=== PATIENT | female | born 1930 | race Hispanic/Latino ===

== ENCOUNTER 2017-08-24 17:05 | Inpatient (IN) | payer MEDICARE, OTHER ==
--- NOTE | 2017-08-24 18:09 | C.PDOC ---
History Of Present Illness Patient ELLEN after a trip and fall for evaluation of right hip pain. Patient was feeding dog when she slipped, fell onto her right side, hitting her hip on the stove. She is currently unable to bear weight on the affected hip. Patient denies head injury, LOC, chest pain, palpitations, SOB, abdominal pain. 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) Current Symptoms Are (Timing): Still Present Severity: Moderate Past Medical History Reviewed: Historical Data, Nursing Documentation, Vital Signs Vital Signs: Last Vital Signs Temp 98.8 F 08/30/17 18:25 Pulse 82 08/30/17 18:25 Resp 18 08/30/17 18:25 BP 102/57 L 08/30/17 18:25 Pulse Ox 100 08/30/17 09:00 - Medical History PMH: Depression, Diabetes, HTN, Hypercholesterolemia, Hypothyroidism Family History: States: No Known Family Hx - Social History Hx Tobacco Use: No Hx Alcohol Use: No Hx Substance Use: No - Immunization History Hx Tetanus Toxoid Vaccination: No Hx Influenza Vaccination: Yes Hx Pneumococcal Vaccination: Yes Review Of Systems Except As Marked, All Systems Reviewed And Found Negative. Constitutional: Negative for: Fever, Chills Cardiovascular: Negative for: Chest Pain, Palpitations Respiratory: Negative for: Shortness of Breath Gastrointestinal: Negative for: Nausea, Vomiting, Abdominal Pain, Diarrhea Musculoskeletal: Positive for: Other (right hip pain) Neurological: Negative for: Weakness, Numbness Physical Exam - Physical Exam Appears: Well, Non-toxic, In Acute Distress (in moderate pain) Head: Atraumatic, Normacephalic Eye(s): bilateral: Normal Inspection Oral Mucosa: Moist Cardiovascular: Rhythm Regular Respiratory: Normal Breath Sounds, No Rales, No Rhonchi, No Wheezing Gastrointestinal/Abdominal: Normal Exam, Bowel Sounds, Soft, No Tenderness Back: Other (right hip (+) severe TTP, inability to raise right leg (decreased ROM)) Extremity: No Pedal Edema, No Calf Tenderness, Capillary Refill (< 2 sec all digits ), No Deformity Pulses: Left Dorsalis Pedis: Normal, Right Dorsalis Pedis: Normal Neurological/Psych: Oriented x3 ED Course And Treatment - Laboratory Results Result Diagrams: 08/30/17 11:02 08/30/17 06:52 O2 Sat by Pulse Oximetry: 98 (RA) Pulse Ox Interpretation: Normal - Other Rad right hip/pelvis Xrays X-Ray: Interpreted by Me, Viewed By Me (subtrochanteric hip fx, displaced and comminuted ) Progress Note: Xray of hips/pelvis ordered and reviewed, and patient given PO tylenol on ED arrival. Xray shows right sided hip subtrochanteric fx, communited and displaced. Blood work ordered and patient given IV morphine. 7: 20pm- Multiple calls placed to Dr. Newsome's service, no call back. Discussed patient with hospitalist who requests admission under medicine director of quality control since patient is insured. 7:28am- Discussed patient with Dr. Flaherty ( medicine director of quality control), he agrees with admisison to his service for right hip fracture. Dr. Manning spoken with and aware of patient with hip fx. - Physician Consult Information Physician Contacted: Cheo Flaherty Disposition - Disposition Disposition: HOSPITALIZED Disposition Time: 19:30 Condition: STABLE - Clinical Impression Clinical Impression: Closed right hip fracture Decision To Admit - Pt Status Changed To: Hospital Disposition Of: Inpatient - Admit Certification Admit to Inpatient:: After my assessment, the patient will require hospitalization for at least two midnights. This is because of the severity of symptoms shown, intensity of services needed, and/or the medical risk in this patient being treated as an outpatient. - InPatient: Physician Admission Certification: I certify that this patient requires 2 or more midnights of care for the following reason:: see notes - . Bed Request Type: Regular Admitting Physician: Cheo Flaherty Patient Diagnosis: Closed right hip fracture
[2017-08-24] MEDS ORDERED: Sodium Chloride 0.9% 500 ML IV ONE (18:11)
[2017-08-24 18:24] LABS: BASO # 0.1 K/uL (0.0-0.2); BASO % 0.5 % (0.0-2.0); EOS # 0.2 K/uL (0.0-0.7); EOS % 1.6 % (0.0-4.0); LYMPH # 4.1 K/uL (1.0-4.3); LYMPH % 27.8 % (20.0-40.0); MEAN CELL VOLUME 95.2 fL (81.0-99.0); MEAN CORPUSCULAR HEMOGLOBIN 32.2 pg (27.0-31.0); MEAN CORPUSCULAR HGB CONC 33.8 g/dL (33.0-37.0); MEAN PLATELET VOLUME 9.9 fL (7.2-11.7); MONO # 0.4 K/uL (0.0-0.8); MONO % 2.7 % (0.0-10.0); NEUT # 9.9 K/uL (1.8-7.0); NEUT % 67.4 % (50.0-75.0); NRBC % 0.1 % (0.0-2.0); RBC 4.67 Mil/uL (3.80-5.20); RED CELL DISTRIBUTION WIDTH 12.9 % (11.5-14.5); WHITE BLOOD COUNT 14.7 K/uL (4.8-10.8)
[2017-08-24 18:42] LABS: PROTHROMBIN TIME 10.9 SECONDS (9.7-12.2)
[2017-08-24 18:54] LABS: ALB/GLOB RATIO 1.3 (1.0-2.1); ALBUMIN 3.7 g/dL (3.5-5.0); ALT/SGPT 23 U/L (9-52); AST/SGOT 29 U/L (14-36); BLOOD UREA NITROGEN 21 mg/dL (7-17); CALCIUM 8.9 mg/dl (8.6-10.4); GFR AFRICAN-AMERICAN > 60; GFR NON-AFRICAN AMERICAN 59
--- NOTE | 2017-08-24 20:24 | CT ---
EXAM: CT Right Lower Extremity Without Intravenous Contrast, Hip EXAM DATE/TIME: 08/24/2017 6:59 PM CLINICAL HISTORY: 87 years old, female; Pain; Hip; Right; Additional info: Right hip FX TECHNIQUE: Axial computed tomography images of the right hip without intravenous contrast. All CT scans at this facility use one or more dose reduction techniques, viz.: automated exposure control; ma/kV adjustment per patient size (including targeted exams where dose is matched to indication; i.e. head); or iterative reconstruction technique. Coronal and sagittal reformatted images were created and reviewed. COMPARISON: There are no prior studies for comparison. FINDINGS: Bones/joints: There is a comminuted intertrochanteric fracture of the right hip. There is varus deformity and impaction at the fracture site. There is distraction of smaller fragments. There is no dislocation. No pelvic or sacral fractures are identified. Bony structures are osteopenic. There are degenerative changes. Soft tissues: There is soft tissue swelling and edema at the right hip. Vasculature: There are vascular calcifications. Intraperitoneal space: There is a nonspecific gas pattern in the visualized pelvis. IMPRESSION: Comminuted intertrochanteric fracture of the right hip with varus deformity and impaction Additional nonemergent findings as described above.
--- NOTE | 2017-08-24 23:44 | CP.PCM.HP ---
History of Present Illness - History of Present Illness History of Present Illness: CC: Right hi ppain HPI: 87 year old female with no significant PMH Patient BIBA after trip and fall for evaluation of right hip hip. Patient was feeding dog when she slipped , fell onto the right side hitting her hip on the stove. She is currently unable to weight bear. Patient denies head injury, LOC, chest pain, palpitations, SOB, abdominal pain. Present on Admission - Present on Admission Any Indicators Present on Admission: Yes Review of Systems - Review of Systems Systems not reviewed;Unavailable: Acuity of Condition - Constitutional Constitutional: absent: As Per HPI, Anorexia, Chills, Daytime Sleepiness, Excessive Sweating, Fatigue, Fever, Frequent Falls, Headache, Increased Appetite , Lethargy, Malaise, Night Sweats, Snoring, Sleep Apnea, Weight Gain, Weight Loss, Weakness, Other - EENT Eyes: absent: As Per HPI, Blind Spots, Blurred Vision, Change in Vision, Decreased Night Vision, Diplopia, Discharge, Dry Eye, Exophthalmos, Floaters, Irritation, Itchy Eyes, Loss of Peripheral Vision, Pain, Photophobia, Requires Corrective Lenses, Sees Flashes, Spots in Vision, Tunnel Vision, Other Visual Disturbances, Loss of Vision, Other Nose/Mouth/Throat: absent: As Per HPI, Epistaxis, Nasal Congestion, Nasal Discharge, Nasal Obstruction, Nasal Trauma, Nose Pain, Post Nasal Drip, Sinus Pain, Sinus Pressure, Bleeding Gums, Change in Voice, Dental Pain, Dry Mouth, Dysphagia, Halitosis, Hoarsness, Lip Swelling, Mouth Lesions, Mouth Pain, Odynophagia, Sore Throat, Throat Swelling, Tongue Swelling, Facial Pain, Neck Pain, Neck Mass, Other - Breasts Breasts: absent: As Per HPI, Change in Shape, Mass, Pain, Nipple Discharge, Nipple Inversion, Skin Changes, Swelling, Other - Cardiovascular Cardiovascular: absent: As Per HPI, Acrocyanosis, Chest Pain, Chest Pain at Rest , Chest Pain with Activity, Claudication, Diaphoresis, Dyspnea, Dyspnea on Exertion, Edema, Irregular Heart Rhythm, Pain Radiating to Arm/Neck/Jaw, Leg Edema, Leg Ulcers, Lightheadedness, Orthopnea, Palpitations, Paroxysmal Nocturnal Dyspnea, Pedal Edema, Radiating Pain, Rapid Heart Rate, Slow Heart Rate, Syncope, Other - Respiratory Respiratory: absent: As Per HPI, Cough, Dyspnea, Hemoptysis, Dyspnea on Exertion , Wheezing, Snoring, Stridor, Pain on Inspiration, Chest Congestion, Excessive Mucous Production, Change in Mucous Color, Pain with Coughing, Other - Musculoskeletal Musculoskeletal: Joint Swelling, Limited Range of Motion, Loss of Height Past Patient History - Past Social History Smoking Status: Never Smoked - CARDIAC Hx Hypercholesterolemia: Yes Hx Hypertension: Yes - PULMONARY Hx Tuberculosis: No - NEUROLOGICAL HX Cerebrovascular Accident: No Hx Seizures: No - ENDOCRINE/METABOLIC Hx Hypothyroidism: Yes - HEMATOLOGICAL/ONCOLOGICAL Hx Cancer: No Hx Human Immunodeficiency Virus (HIV): No - GENITOURINARY/GYNECOLOGICAL Hx Sexually Transmitted Disorders: No - PSYCHIATRIC Hx Depression: Yes Hx Substance Use: No - ANESTHESIA Hx Anesthesia: No Hx Anesthesia Reactions: No Meds Allergies/Adverse Reactions: Allergies Allergy/AdvReac Type Severity Reaction Status Date / Time erythromycin base Allergy RASH Verified 08/24/17 17:16 Penicillins Allergy RASH Verified 08/25/17 04:25 Results - Vital Signs Recent Vital Signs: Last Vital Signs Temp 98.6 F 08/24/17 17:21 Pulse 90 08/24/17 22:15 Resp 14 08/24/17 22:15 BP 96/60 L 08/24/17 22:15 Pulse Ox 96 08/24/17 22:15 - Labs Result Diagrams: 08/24/17 18:15 08/24/17 18:15 Labs: Laboratory Results - last 24 hr 08/24/17 08/24/17 08/24/17 18:15 18:15 18:15 WBC 14.7 H RBC 4.67 Hgb 15.0 Hct 44.5 MCV 95.2 MCH 32.2 H MCHC 33.8 RDW 12.9 Plt Count 258 MPV 9.9 Neut % (Auto) 67.4 Lymph % (Auto) 27.8 [place] % (Auto) 2.7 Eos % (Auto) 1.6 Baso % (Auto) 0.5 Neut # 9.9 H Lymph # 4.1 [place] # 0.4 Eos # 0.2 Baso # 0.1 PT 10.9 INR 1.0 APTT 25 Sodium 135 Potassium 4.2 Chloride 98 Carbon Dioxide 27 Anion Gap 14 BUN 21 H Creatinine 0.9 Est GFR ( Amer) > 60 Est GFR (Non-Af Amer) 59 Random Glucose 212 H Calcium 8.9 Total Bilirubin 0.5 AST 29 ALT 23 Alkaline Phosphatase 76 Total Protein 6.7 Albumin 3.7 Globulin 3.0 Albumin/Globulin Ratio 1.3 Blood Type BRANDIN, Poly Interpret 08/24/17 18:15 WBC RBC Hgb Hct MCV MCH MCHC RDW Plt Count MPV Neut % (Auto) Lymph % (Auto) [place] % (Auto) Eos % (Auto) Baso % (Auto) Neut # Lymph # [place] # Eos # Baso # PT INR APTT Sodium Potassium Chloride Carbon Dioxide Anion Gap BUN Creatinine Est GFR ( Amer) Est GFR (Non-Af Amer) Random Glucose Calcium Total Bilirubin AST ALT Alkaline Phosphatase Total Protein Albumin Globulin Albumin/Globulin Ratio Blood Type O POSITIVE BRANDIN, Poly Interpret Positive H Assessment & Plan (1) Hip fracture, right Assessment and Plan: pt is for OR Status: Acute (2) HTN (hypertension) Status: Acute
[2017-08-25] MEDS: Levothyroxine 100 MCG TAB PO SCH (06:26)
--- NOTE | 2017-08-25 08:19 | RAD ---
PROCEDURE: Pelvis right hip HISTORY: RIGHT HIP PAIN POSSIBLE FX COMPARISON: None TECHNIQUE: Standard protocol for this study/examination. FINDINGS: Comminuted intertrochanteric fracture proximal right femur with avulsion of both greater and lesser trochanters. Incidental finding(s): Calculus probably originating from the right kidney or collecting system 13 mm. IMPRESSION: Acute and comminuted intertrochanteric right femoral fracture.
--- NOTE | 2017-08-25 08:19 | RAD ---
PROCEDURE: CHEST RADIOGRAPH, 1 VIEW HISTORY: PREOP COMPARISON: None available. FINDINGS: LUNGS: Clear. PLEURA: No pneumothorax or pleural fluid seen. CARDIOVASCULAR: Cardiomegaly. No evidence of acute, significant cardiovascular disease. OSSEOUS STRUCTURES: Severe degenerative changes right shoulder and to lesser extent left shoulder. VISUALIZED UPPER ABDOMEN: Normal. OTHER FINDINGS: None. IMPRESSION: No active pulmonary disease. Additional benign and/or incidental findings described above.
--- NOTE | 2017-08-25 08:25 | RAD ---
PROCEDURE: Right femur HISTORY: right hip fx, ortho request COMPARISON: August 24, 2017. TECHNIQUE: Standard protocol for this study/examination. FINDINGS: Acute and comminuted inter trochanteric fracture with a component of impaction and varus deformity. No distal abnormalities of an acute nature identified. Incompletely visualized degenerative changes. IMPRESSION: Acute comminuted intertrochanteric fracture.
[2017-08-25] MEDS: Enoxaparin 40 mg Syringe SC SCH (09:46)
[2017-08-25] MEDS ORDERED: ZOLPIDEM TARTRATE 5 MG PO SCH (10:00)
[2017-08-25] MEDS ORDERED: ATENOLOL 25 MG PO SCH (10:00)
--- NOTE | 2017-08-26 02:38 | CP.PCM.PN ---
Subjective - Date & Time of Evaluation Date of Evaluation: 08/25/17 Time of Evaluation: 18:00 - Subjective Subjective: Pt still c/o right hip pain, is medically stable for OR Objective - Vital Signs/Intake and Output Vital Signs (last 24 hours): Temp Pulse Resp BP Pulse Ox 97.5 F L 86 20 111/71 95 08/25/17 23:10 08/25/17 23:10 08/25/17 23:10 08/25/17 23:10 08/25/17 23:10 Intake and Output: 08/25/17 08/26/17 18:59 06:59 Intake Total 350 Balance 350 - Medications Medications: Current Medications Atenolol (Tenormin) 25 mg PO DAILY [facility] Enoxaparin Sodium (Lovenox) 40 mg SC DAILY [facility] Last Admin: 08/25/17 09:46 Dose: 40 mg Levothyroxine Sodium (Synthroid) 100 mcg PO DAILY@0630 [facility] Last Admin: 08/25/17 06:26 Dose: 100 mcg Morphine Sulfate (Morphine) 2 mg IVP Q4 PRN PRN Reason: pain Last Admin: 08/25/17 22:44 Dose: 2 mg Rosuvastatin Calcium (Crestor) 10 mg PO HS [facility] Last Admin: 08/25/17 22:39 Dose: 10 mg Zolpidem Tartrate (Ambien) 5 mg PO [facility] - Labs Labs: 08/24/17 18:15 08/24/17 18:15 PT 10.9 SECONDS (9.7-12.2) 08/24/17 18:15 INR 1.0 08/24/17 18:15 APTT 25 SECONDS (21-34) 08/24/17 18:15 - Constitutional Appears: No Acute Distress - Head Exam Head Exam: ATRAUMATIC, NORMAL INSPECTION, NORMOCEPHALIC - Eye Exam Eye Exam: EOMI, Normal appearance, PERRL Pupil Exam: NORMAL ACCOMODATION, PERRL - Respiratory Exam Respiratory Exam: Clear to Ausculation Bilateral, NORMAL BREATHING PATTERN - Cardiovascular Exam Cardiovascular Exam: REGULAR RHYTHM, +S1, +S2. absent: Murmur - GI/Abdominal Exam GI & Abdominal Exam: Soft, Normal Bowel Sounds. absent: Tenderness - Rectal Exam Rectal Exam: Deferred - Extremities Exam Extremities Exam: Joint Swelling - Back Exam Back Exam: NORMAL INSPECTION - Neurological Exam Neurological Exam: Alert, Awake, CN II-XII Intact, Normal Gait, Oriented x3 Assessment and Plan (1) HTN (hypertension) Status: Acute (2) Hip fracture, right Status: Acute
[2017-08-26] MEDS: Levothyroxine 100 MCG TAB PO SCH (05:36)
--- NOTE | 2017-08-26 12:04 | CP.PCM.CON ---
History of Present Illness - History of Present Illness History of Present Illness: Orthopedic consultation Dr. Cartwright 87F complains of right hip pain after fall, found to have hip fracture. Advised patient of risks/benefits/alt of surgery and patient agrees to IM nailing. Denies CP/SOB/dizziness/numbness/tingling/n/v. Denies pain in other extremities , denies LOC/headache. Review of Systems - Review of Systems All systems: reviewed and no additional remarkable complaints except - Constitutional Additional comments: denies recent illness - Cardiovascular Cardiovascular: As Per HPI - Respiratory Respiratory: As Per HPI - Gastrointestinal Gastrointestinal: As Per HPI - Genitourinary Additional comments: denies dysuria - Musculoskeletal Musculoskeletal: As Per HPI - Integumentary Integumentary: As Per HPI - Neurological Neurological: As Per HPI - Hematologic/Lymphatic Hematologic: absent: As Per HPI, Easy Bleeding, Easy Bruising, Lymphadenopathy, Other Past Patient History - Past Medical History & Family History Past Medical History?: Yes Past Family History: Reviewed and not pertinent - Past Social History Smoking Status: Never Smoked - CARDIAC Hx Hypercholesterolemia: Yes Hx Hypertension: Yes - PULMONARY Hx Tuberculosis: No - NEUROLOGICAL HX Cerebrovascular Accident: No Hx Seizures: No - HEENT Hx HEENT Problems: No - ENDOCRINE/METABOLIC Hx Hypothyroidism: Yes - HEMATOLOGICAL/ONCOLOGICAL Hx Cancer: No Hx Human Immunodeficiency Virus (HIV): No - INTEGUMENTARY Hx Dermatological Problems: No - MUSCULOSKELETAL/RHEUMATOLOGICAL Hx Falls: Yes - GASTROINTESTINAL Hx Gastrointestinal Disorders: No - GENITOURINARY/GYNECOLOGICAL Hx Sexually Transmitted Disorders: No - PSYCHIATRIC Hx Depression: Yes Hx Substance Use: No - SURGICAL HISTORY Hx Surgeries: Yes Other/Comment: 2x c section. right wrist fracture "long time ago" - ANESTHESIA Hx Anesthesia: No Hx Anesthesia Reactions: No Meds Allergies/Adverse Reactions: Allergies Allergy/AdvReac Type Severity Reaction Status Date / Time erythromycin base Allergy RASH Verified 08/24/17 17:16 Penicillins Allergy RASH Verified 08/25/17 04:25 - Medications Medications: Current Medications Atenolol (Tenormin) 25 mg PO DAILY [facility] Last Admin: 08/26/17 09:58 Dose: 25 mg Enoxaparin Sodium (Lovenox) 40 mg SC DAILY [facility] Last Admin: 08/25/17 09:46 Dose: 40 mg Levothyroxine Sodium (Synthroid) 100 mcg PO DAILY@0630 [facility] Last Admin: 08/26/17 05:36 Dose: 100 mcg Morphine Sulfate (Morphine) 2 mg IVP Q4 PRN PRN Reason: pain Last Admin: 08/26/17 09:58 Dose: 2 mg Rosuvastatin Calcium (Crestor) 10 mg PO [facility] Last Admin: 08/25/17 22:39 Dose: 10 mg Zolpidem Tartrate (Ambien) 5 mg PO [facility] Last Admin: 08/25/17 22:15 Dose: Not Given Physical Exam - Constitutional Appears: Well, No Acute Distress - Head Exam Head Exam: ATRAUMATIC - Respiratory Exam Respiratory Exam: NORMAL BREATHING PATTERN - Cardiovascular Exam Additional comments: +DP/PT pulses - Expanded Lower Extremities Exam Right Hip exam: external rotation, shortening (+DP/PTpulses, calves soft NT neg homans ) Knee exam: normal inspection Ankle exam: FULL ROM, NORMAL INSPECTION - Neurological Exam Neurological exam: Alert, Oriented x3 - Psychiatric Exam Psychiatric exam: Normal Affect, Normal Mood - Skin Skin Exam: Dry, Intact, Normal Color, Warm Results - Vital Signs Recent Vital Signs: Last Vital Signs Temp 99 F 08/26/17 09:51 Pulse 103 H 08/26/17 09:51 Resp 20 08/26/17 09:51 BP 105/67 08/26/17 09:51 Pulse Ox 96 08/26/17 09:51 - Labs Result Diagrams: 08/24/17 18:15 08/24/17 18:15 - EKG Data EKG comments: Patient Name / ID : DAYSI HODGSON / [id number] Exam Date : 08/24/2017 19:01:21 ( Approved ) Study Comment : Sex / Age : F / 87Y Creator : Luis A Ho MD Dictator : Luis A Ho MD Hot Stick Worker : Mannequin Wig Maker : Luis A Ho MD Approver2 : Report Date : 08/25/2017 08:23:31 My Comment : PROCEDURE: Right femur HISTORY: right hip fx, ortho request COMPARISON: August 24, 2017. TECHNIQUE: Standard protocol for this study/examination. FINDINGS: Acute and comminuted inter trochanteric fracture with a component of impaction and varus deformity. No distal abnormalities of an acute nature identified. Incompletely visualized degenerative changes. IMPRESSION: Acute comminuted intertrochanteric fracture. - Impressions Impression: Patient Name / ID : DAYSI HODGSON / [id number] Exam Date : 08/24/2017 19:41:46 ( Approved ) Study Comment : Sex / Age : F / 87Y Creator : ELOY RENEE Dictator : Hot Stick Worker : Mannequin Wig Maker : ELOY RENEE Approver2 : Report Date : 08/24/2017 20:24:00 My Comment : [facility] Division of Radiology [address] [place] [address] Tel. no. Patient Name: REMA TAVAREZ Pt. Address: [address] [place] [address] Rec #: [id number] [place] [address]: Nely Bryant DO Pt Order Location: 9 : 1930 Female Age: 87 Order #: [id number] Reason for exam: right hip fx CT Scan HIP WITHOUT CONTRAST RIGHT Exam Date: 08/24/17 This imaging exam was performed at [facility] EXAM: CT Right Lower Extremity Without Intravenous Contrast, Hip EXAM DATE/TIME: 08/24/2017 6:59 PM CLINICAL HISTORY: 87 years old, female; Pain; Hip; Right; Additional info: Right hip FX TECHNIQUE: Axial computed tomography images of the right hip without intravenous contrast. All CT scans at this facility use one or more dose reduction techniques, viz.: automated exposure control; ma/kV adjustment per patient size (including targeted exams where dose is matched to indication; i.e. head); or iterative reconstruction technique. Coronal and sagittal reformatted images were created and reviewed. COMPARISON: There are no prior studies for comparison. FINDINGS: Bones/joints: There is a comminuted intertrochanteric fracture of the right hip. There is varus deformity and impaction at the fracture site. There is distraction of smaller fragments. There is no dislocation. No pelvic or sacral fractures are identified. Bony structures are osteopenic. There are degenerative changes. Soft tissues: There is soft tissue swelling and edema at the right hip. Vasculature: There are vascular calcifications. Intraperitoneal space: There is a nonspecific gas pattern in the visualized pelvis. IMPRESSION: Comminuted intertrochanteric fracture of the right hip with varus deformity and impaction Additional nonemergent findings as described above. Dictated By: Eloy Renee MD, MD Dictated Date/Time: 08/24/172023 Signed By: Eloy Renee MD Date Signed: 2023 Transcribed By: [facility] Transcribe Date/Time : 08/24/172023 MAMTA/MT Assessment & Plan (1) Displaced intertrochanteric fracture of right femur Assessment and Plan: plan for IM nailing weds 9am per Dr. Gabbie card, u/a VTE proph, lovenox given SCD repeat labs ordered d/w Dr. Cartwright, agrees with above Status: Acute
[2017-08-26 12:24] LABS: BASO % 0.3 % (0.0-2.0); LYMPH # 2.4 K/uL (1.0-4.3); LYMPH % 16.4 % (20.0-40.0); MEAN CELL VOLUME 94.1 fL (81.0-99.0); MEAN CORPUSCULAR HEMOGLOBIN 32.1 pg (27.0-31.0); MEAN CORPUSCULAR HGB CONC 34.1 g/dL (33.0-37.0); MEAN PLATELET VOLUME 10.3 fL (7.2-11.7); MONO # 0.9 K/uL (0.0-0.8); MONO % 6.4 % (0.0-10.0); NEUT # 11.3 K/uL (1.8-7.0); NEUT % 76.9 % (50.0-75.0); RBC 3.58 Mil/uL (3.80-5.20); RED CELL DISTRIBUTION WIDTH 12.9 % (11.5-14.5); WHITE BLOOD COUNT 14.7 K/uL (4.8-10.8)
[2017-08-26 12:31] LABS: HEMOGLOBIN 11.5 g/dL (11.0-16.0)
[2017-08-26 12:49] LABS: BLOOD UREA NITROGEN 19 mg/dL (7-17); GFR AFRICAN-AMERICAN > 60; GFR NON-AFRICAN AMERICAN > 60
[2017-08-26 18:21] LABS: SQUAMOUS EPITHIAL 2 /hpf (0-5); URINE BACTERIA FEW (<OCC); URINE BILIRUBIN NEGATIVE (NEGATIVE); URINE BLOOD 3+ (NEGATIVE); URINE CALCIUM OXALATE CRYSTALS FEW /hpf (<OCC); URINE CLARITY Hazy (Clear); URINE COLOR Yellow (YELLOW); URINE GLUCOSE (UA) 2+ mg/dL (Normal); URINE NITRATE NEGATIVE (NEGATIVE); URINE PROTEIN 1+ mg/dL (NEGATIVE); URINE UROBILINOGEN NORMAL mg/dL (0.2-1.0)
[2017-08-26 18:22] LABS: URINE LEUKOCYTE ESTERASE 3+ Leu/uL (Negative)
--- NOTE | 2017-08-26 22:58 | CP.PCM.PN ---
Subjective - Date & Time of Evaluation Date of Evaluation: 08/26/17 Time of Evaluation: 16:50 - Subjective Subjective: Pt seen and examined, he is for OR on Saturday for Hip surgery, she is for cardiac clearance today Objective - Vital Signs/Intake and Output Vital Signs (last 24 hours): Temp Pulse Resp BP Pulse Ox 98.8 F 80 18 106/71 96 08/26/17 15:30 08/26/17 16:00 08/26/17 15:30 08/26/17 15:30 08/26/17 15:30 Intake and Output: 08/26/17 08/27/17 18:59 06:59 Intake Total 430 240 Output Total 100 175 Balance 330 65 - Medications Medications: Current Medications Atenolol (Tenormin) 25 mg PO DAILY [facility] Last Admin: 08/26/17 09:58 Dose: 25 mg Ciprofloxacin (Cipro) 500 mg PO BID [facility] Stop: 08/31/17 11:00 Last Admin: 08/26/17 21:39 Dose: 500 mg Enoxaparin Sodium (Lovenox) 40 mg SC DAILY [facility] Last Admin: 08/25/17 09:46 Dose: 40 mg Levothyroxine Sodium (Synthroid) 100 mcg PO DAILY@0630 [facility] Last Admin: 08/26/17 05:36 Dose: 100 mcg Morphine Sulfate (Morphine) 2 mg IVP Q4 PRN PRN Reason: pain Last Admin: 08/26/17 21:41 Dose: 2 mg Rosuvastatin Calcium (Crestor) 10 mg PO [facility] Last Admin: 08/25/17 22:39 Dose: 10 mg Zolpidem Tartrate (Ambien) 5 mg PO [facility] Last Admin: 08/26/17 21:39 Dose: 5 mg - Labs Labs: 08/26/17 12:14 08/26/17 12:14 PT 10.9 SECONDS (9.7-12.2) 08/24/17 18:15 INR 1.0 08/24/17 18:15 APTT 25 SECONDS (21-34) 08/24/17 18:15 - Constitutional Appears: No Acute Distress - Head Exam Head Exam: ATRAUMATIC, NORMAL INSPECTION, NORMOCEPHALIC - Eye Exam Eye Exam: EOMI, Normal appearance, PERRL Pupil Exam: NORMAL ACCOMODATION, PERRL - Respiratory Exam Respiratory Exam: Clear to Ausculation Bilateral, NORMAL BREATHING PATTERN - Cardiovascular Exam Cardiovascular Exam: REGULAR RHYTHM, +S1, +S2. absent: Murmur - GI/Abdominal Exam GI & Abdominal Exam: Soft, Normal Bowel Sounds. absent: Tenderness - Rectal Exam Rectal Exam: Deferred Assessment and Plan (1) HTN (hypertension) Status: Acute (2) Hip fracture, right Status: Acute
--- NOTE | 2017-08-27 00:41 | CON ---
DATE: REASON FOR CONSULTATION: Hypertension, repeat operative evaluation for a comminuted right intertrochanteric fracture. HISTORY OF PRESENT ILLNESS: The patient is an 87-year-old female who has a history of hypertension and no known other cardiac history according to her. Patient sustained a fall on her kitchen floor as was she tripped by her dog. Patient fell and sustained a right hip fracture. Patient denies any dizziness, loss of consciousness or palpitation and denies any head injury. The patient has a history of fall few years ago and sustained a fracture in the right forearm that required open reduction and internal fixation. The patient has right hip pain. She denies any chest pain or shortness of breath at this time. SOCIAL HITORY: Nonsmoker. She lives with her son. MEDICATIONS: Ambien 5 mg at bedtime, Crestor 10 mg once daily, Lovenox 40 mg subcutaneously once a day, morphine 2 mg subcutaneously q. 4 hours p.r.n., Synthroid 100 mcg once a day, atenolol 25 mg once a day. REVIEW OF SYSTEMS: No fever or chills. No chest pain. No palpitation. No dizziness or syncope. PHYSICAL EXAMINATION GENERAL: The patient is an elderly female, who does not appear to be in acute distress. VITAL SIGNS: Blood pressure 105/67, heart rate 103, temperature 99, respirations 20. HEENT: Normocephalic. CHEST: Clear. HEART: S1 and S2 regular. ABDOMEN: Soft. EXTREMITIES: No pedal edema. LABORATORY DATA: Today's SMA-7; sodium 130, potassium 4.4, chloride 100, CO2 of 26, glucose 184, BUN 19, creatinine 0.8. PT, INR, and PTT are within normal limits. CBC; WBC 14.7, hemoglobin 11.5, hematocrit 33.7, platelet count 172,000. X-ray of the hip revealed a comminuted fracture involving the right femur neck as well as the proximal right femoral shaft including both greater and lesser trochanters. The official report of the hip CT scan stated comminuted intertrochanteric fracture of the right hip with valgus deformity and impaction. EKG revealed sinus rhythm with atrial premature complexes. Heart rate is 74. Chest x-ray was significantly rotated; however, no infiltrate or effusion noted. ASSESSMENT: 1. Status post fall and a comminuted, angulated, and impacted right intertrochanteric fracture. 2. History of hypertension. 3. Hypothyroidism. 4. Abnormal EKG with evidence of atrial premature complexes. RECOMMENDATIONS: Continue Synthroid 100 mcg once a day, atenolol 25 mg once a day, Crestor 10 mg once a day. Obtain an echocardiographic study. Donal Mcintosh MD
[2017-08-27] MEDS: Levothyroxine 100 MCG TAB PO SCH (05:47)
[2017-08-27 07:37] LABS: HEMOGLOBIN 10.7 g/dL (11.0-16.0); MEAN CELL VOLUME 94.1 fL (81.0-99.0); MEAN CORPUSCULAR HEMOGLOBIN 32.1 pg (27.0-31.0); MEAN CORPUSCULAR HGB CONC 34.1 g/dL (33.0-37.0); MEAN PLATELET VOLUME 10.1 fL (7.2-11.7); RBC 3.35 Mil/uL (3.80-5.20); RED CELL DISTRIBUTION WIDTH 13.1 % (11.5-14.5); WHITE BLOOD COUNT 13.8 K/uL (4.8-10.8)
[2017-08-27 07:47] LABS: BLOOD UREA NITROGEN 21 mg/dL (7-17); CALCIUM 7.8 mg/dl (8.6-10.4); GFR AFRICAN-AMERICAN > 60; GFR NON-AFRICAN AMERICAN 52
--- NOTE | 2017-08-27 13:08 | CARD ---
APPROVED REPORT EXAM: Two-dimensional and M-mode echocardiogram with Doppler and color Doppler. Other Information Quality : GoodRhythm : INDICATION Pre-Op RISK FACTORS Hypertension Hyperlipidemia Diabetes 2D DIMENSIONS IVSd0.9 (0.7-1.1cm)LVDd3.7 (3.9-5.9cm) PWd0.9 (0.7-1.1cm)LVDs2.2 (2.5-4.0cm) FS (%) 40.9 %LVEF (%)72.6 (>50%) M-Mode DIMENSIONS Left Atrium (MM)4.82 (2.5-4.0cm)Aortic Root2.82 (2.2-3.7cm) Aortic Cusp Exc.2.18 (1.5-2.0cm) Aortic Valve AI P 1/2 [id number] Mitral Valve MV E Ragfqsak85.8cm/sMV A Wcgvimnw61.8cm/sE/A ratio1.1 TDI E/Lateral E'0.0E/Medial E'0.0 Tricuspid Valve TR Peak [id number]/sTR Peak Gr.[id number] LEFT VENTRICLE The left ventricle is normal size. There is normal left ventricular wall thickness. Left ventricle systolic function is normal. The Ejection Fraction is 65-70%. There is normal LV segmental wall motion. Transmitral Doppler flow pattern is Grade I-abnormal relaxation pattern. There is no ventricular septal defect visualized. RIGHT VENTRICLE The right ventricle is normal size. The right ventricular systolic function is normal. ATRIA The left atrium is mildly dilated. Large as defined mass in the left atrium, probably attached to the atrial aspect of the anterior leaflet of the mitral valve. Cannot rule out myxoma, DIPAK is recommended The right atrium size is normal. AORTIC VALVE The aortic valve is moderately sclerotic. The aortic valve is tri-cuspid. There is moderate aortic regurgitation. There is no aortic valvular stenosis. MITRAL VALVE The mitral valve is normal in structure. The mitral valve is not well visualized. There is no evidence of mitral valve prolapse. There is no mitral valve regurgitation noted. TRICUSPID VALVE The tricuspid valve is normal in structure. There is trace to mild tricuspid regurgitation. Right ventricular systolic pressure is estimated at 30-40 mmHg. There is mild pulmonary hypertension. PULMONIC VALVE The pulmonic valve is not well visualized. There is no pulmonic valvular regurgitation. GREAT VESSELS The aortic root is normal in size. The ascending aorta is normal in size. The IVC is normal in size and collapses >50% with inspiration. PERICARDIAL EFFUSION There is no pericardial effusion. <Conclusion> Left ventricle systolic function is normal. The Ejection Fraction is 65-70%. Transmitral Doppler flow pattern is Grade I-abnormal relaxation pattern. The left atrium is mildly dilated. Large as defined mass in the left atrium, probably attached to the atrial aspect of the anterior leaflet of the mitral valve. Cannot rule out myxoma, DIPAK is recommended There is moderate aortic regurgitation. There is mild pulmonary hypertension.
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
--- NOTE | 2017-08-27 23:58 | CP.PCM.PN ---
Subjective - Date & Time of Evaluation Date of Evaluation: 08/27/17 Time of Evaluation: 18:00 - Subjective Subjective: Pt is for OR, possibility of atrial myxoma she need DIPAK eventually,otherwise she is stable for OR for hip replacement Objective - Vital Signs/Intake and Output Vital Signs (last 24 hours): Temp Pulse Resp BP Pulse Ox 99.3 F 71 18 97/60 L 95 08/27/17 15:15 08/27/17 15:30 08/27/17 15:15 08/27/17 15:15 08/27/17 15:15 Intake and Output: 08/27/17 08/28/17 18:59 06:59 Intake Total 400 Output Total 250 Balance 150 - Medications Medications: Current Medications Atenolol (Tenormin) 25 mg PO DAILY [facility] Last Admin: 08/27/17 10:47 Dose: 25 mg Ciprofloxacin (Cipro) 500 mg PO BID [facility] Stop: 08/31/17 11:00 Last Admin: 08/27/17 20:22 Dose: 500 mg Enoxaparin Sodium (Lovenox) 40 mg SC DAILY [facility] Last Admin: 08/25/17 09:46 Dose: 40 mg Levothyroxine Sodium (Synthroid) 100 mcg PO DAILY@0630 [facility] Last Admin: 08/27/17 05:47 Dose: 100 mcg Morphine Sulfate (Morphine) 2 mg IVP Q4 PRN PRN Reason: pain Last Admin: 08/27/17 10:47 Dose: 2 mg Rosuvastatin Calcium (Crestor) 10 mg PO [facility] Last Admin: 08/27/17 22:44 Dose: 10 mg Zolpidem Tartrate (Ambien) 5 mg PO [facility] Last Admin: 08/27/17 22:43 Dose: 5 mg - Labs Labs: 08/27/17 07:22 08/27/17 07:22 PT 10.9 SECONDS (9.7-12.2) 08/24/17 18:15 INR 1.0 08/24/17 18:15 APTT 25 SECONDS (21-34) 08/24/17 18:15 - Constitutional Appears: No Acute Distress - Head Exam Head Exam: ATRAUMATIC, NORMAL INSPECTION, NORMOCEPHALIC - Eye Exam Eye Exam: EOMI, Normal appearance, PERRL Pupil Exam: NORMAL ACCOMODATION, PERRL - ENT Exam ENT Exam: Mucous Membranes Moist, Normal Exam - Neck Exam Neck Exam: Full ROM, Normal Inspection. absent: Lymphadenopathy - Respiratory Exam Respiratory Exam: Clear to Ausculation Bilateral, NORMAL BREATHING PATTERN - Cardiovascular Exam Cardiovascular Exam: REGULAR RHYTHM, +S1, +S2. absent: Murmur - GI/Abdominal Exam GI & Abdominal Exam: Soft, Normal Bowel Sounds. absent: Tenderness Assessment and Plan (1) HTN (hypertension) Status: Acute (2) Hip fracture, right Status: Acute
[2017-08-28] MEDS: Levothyroxine 100 MCG TAB PO SCH (05:53)
[2017-08-28 07:36] LABS: HEMOGLOBIN 10.1 g/dL (11.0-16.0); MEAN CELL VOLUME 93.6 fL (81.0-99.0); MEAN CORPUSCULAR HGB CONC 34.2 g/dL (33.0-37.0); RBC 3.14 Mil/uL (3.80-5.20); WHITE BLOOD COUNT 12.1 K/uL (4.8-10.8)
[2017-08-28 08:02] LABS: BLOOD UREA NITROGEN 22 mg/dL (7-17); CALCIUM 7.8 mg/dl (8.6-10.4); GFR AFRICAN-AMERICAN > 60; GFR NON-AFRICAN AMERICAN 59
[2017-08-28] MEDS ORDERED: Succinylcholine Chloride 20 mg/ml Syr (5 ml) IV ONE (08:34)
[2017-08-28] MEDS ORDERED: Rocuronium 10 mg/ml (10 ml) ONE (08:34)
[2017-08-28] MEDS ORDERED: Etomidate 20 mg/10ml Inj IV ONE (08:34)
[2017-08-28] MEDS ORDERED: Propofol 10 mg/ml Inj (20 ML) ONE (08:34)
[2017-08-28] MEDS ORDERED: Phenylephrine 10 mg/ml Inj ONE (08:34)
[2017-08-28] MEDS ORDERED: Midazolam 2 MG/2 ML VIAL ONE (08:34)
[2017-08-28] MEDS ORDERED: ePHEDrine 50 mg/ml Inj ONE (08:34)
[2017-08-28] MEDS ORDERED: Lactated Ringer's 1,000 ML IV ONE ×3 (09:09→12:30)
[2017-08-28] MEDS ORDERED: Vancomycin 1 gm/D5W 200 ml 1 GM/200 ML BAG IVPB ONE (10:57)
[2017-08-28] MEDS ORDERED: Neostigmine Methylsulfate 3mg/3ml Syringe IV ONE (13:17)
[2017-08-28] MEDS ORDERED: HYDROmorphone 0.5 mg/0.5 ml ISec IVP PRN (14:11)
[2017-08-28] MEDS: Enoxaparin 40 mg Syringe SC SCH (14:15)
[2017-08-28 15:48] LABS: HEMOGLOBIN 8.3 g/dL (11.0-16.0); MEAN CELL VOLUME 93.9 fL (81.0-99.0); MEAN CORPUSCULAR HEMOGLOBIN 31.1 pg (27.0-31.0); MEAN CORPUSCULAR HGB CONC 33.2 g/dL (33.0-37.0); RBC 2.65 Mil/uL (3.80-5.20); RED CELL DISTRIBUTION WIDTH 13.2 % (11.5-14.5); WHITE BLOOD COUNT 16.5 K/uL (4.8-10.8)
[2017-08-28] MEDS: Lactated Ringer's 1,000 ML IV SCH (16:10)
[2017-08-28 16:11] LABS: ALBUMIN 2.2 g/dL (3.5-5.0); ALT/SGPT 19 U/L (9-52); AST/SGOT 22 U/L (14-36); BLOOD UREA NITROGEN 22 mg/dL (7-17); CALCIUM 7.5 mg/dl (8.6-10.4); GFR AFRICAN-AMERICAN > 60; GFR NON-AFRICAN AMERICAN > 60
--- NOTE | 2017-08-28 17:10 | RAD ---
PROCEDURE: Intraoperative fluoroscopy HISTORY: FX. RT. HIP COMPARISON: Not available TECHNIQUE: Intraoperative fluoroscopy was provided during ORIF of right hip. Total time of fluoroscopy was 5 focal 1.3 seconds. FINDINGS: Multiple fluoroscopic spot films are submitted. IMPRESSION: Fluoroscopy provided.
--- NOTE | 2017-08-28 18:16 | CP.PCM.CON ---
History of Present Illness - History of Present Illness History of Present Illness: CCU Consult Note HPI: Patient is an 87F who presented to the hospital on Saturday after she fell in her home while feeding her dog. She fell and hit her R. Hip on the stove. She was unable to bear weight. She came to the ED and was seen by ortho who advised repairing the hip. 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 She went to the OR today. We were consulted for observation post op given her new cardiac finding. Patient is currently stable. PMH: High blood pressure, hypothyroid on synthroid PSH: R. arm surgery, R. Hip FH: unremarkable SH: quit smoking over 20 years ago All: none Review of Systems - Review of Systems Review of Systems: Per hpi Past Patient History - Past Medical History & Family History Past Medical History?: Yes Past Family History: Reviewed and not pertinent - Past Social History Smoking Status: Never Smoked - CARDIAC Hx Hypercholesterolemia: Yes Hx Hypertension: Yes - PULMONARY Hx Tuberculosis: No - NEUROLOGICAL HX Cerebrovascular Accident: No Hx Seizures: No - HEENT Hx HEENT Problems: No - ENDOCRINE/METABOLIC Hx Hypothyroidism: Yes - HEMATOLOGICAL/ONCOLOGICAL Hx Cancer: No Hx Human Immunodeficiency Virus (HIV): No - INTEGUMENTARY Hx Dermatological Problems: No - MUSCULOSKELETAL/RHEUMATOLOGICAL Hx Falls: Yes - GASTROINTESTINAL Hx Gastrointestinal Disorders: No - GENITOURINARY/GYNECOLOGICAL Hx Sexually Transmitted Disorders: No - PSYCHIATRIC Hx Depression: Yes Hx Substance Use: No - SURGICAL HISTORY Hx Surgeries: Yes Other/Comment: 2x c section. right wrist fracture "long time ago" - ANESTHESIA Hx Anesthesia: No Hx Anesthesia Reactions: No Meds Allergies/Adverse Reactions: Allergies Allergy/AdvReac Type Severity Reaction Status Date / Time erythromycin base Allergy RASH Verified 08/24/17 17:16 Penicillins Allergy RASH Verified 08/25/17 04:25 - Medications Medications: Current Medications Atenolol (Tenormin) 25 mg PO DAILY [facility] Last Admin: 08/28/17 11:00 Dose: Not Given Ciprofloxacin (Cipro) 500 mg PO BID [facility] Stop: 08/31/17 11:00 Last Admin: 08/28/17 14:15 Dose: Not Given Enoxaparin Sodium (Lovenox) 40 mg SC DAILY [facility] Last Admin: 08/28/17 14:15 Dose: Not Given Vancomycin/Sodium Chloride (Vancomycin 1 Gm/Ns 200 Ml) 1 gm in 200 mls @ 133.333 mls/hr IVPB Q12H [facility] Stop: 09/02/17 23:01 Lactated Ringer's (Lactated Ringer's) 1,000 mls @ 100 mls/hr IV .Q10H [facility] Last Admin: 08/28/17 16:10 Dose: 0 mls Levothyroxine Sodium (Synthroid) 100 mcg PO DAILY@0630 [facility] Last Admin: 08/28/17 05:53 Dose: 100 mcg Morphine Sulfate (Morphine) 2 mg IVP Q4 PRN PRN Reason: pain Last Admin: 08/27/17 10:47 Dose: 2 mg Rosuvastatin Calcium (Crestor) 10 mg PO [facility] Last Admin: 08/27/17 22:44 Dose: 10 mg Zolpidem Tartrate (Ambien) 5 mg PO [facility] Last Admin: 08/27/17 22:43 Dose: 5 mg Physical Exam - Constitutional Appears: Well, Non-toxic, No Acute Distress - Head Exam Head Exam: ATRAUMATIC, NORMAL INSPECTION, NORMOCEPHALIC - Eye Exam Eye Exam: EOMI Pupil Exam: NORMAL ACCOMODATION - ENT Exam ENT Exam: Mucous Membranes Moist - Respiratory Exam Respiratory Exam: Clear to Auscultation Bilateral, NORMAL BREATHING PATTERN - Cardiovascular Exam Cardiovascular Exam: REGULAR RHYTHM - GI/Abdominal Exam GI & Abdominal Exam: Normal Bowel Sounds, Soft. absent: Distended, Tenderness - Extremities Exam Additional comments: dressing on R. hip c/d/i - Neurological Exam Neurological exam: Alert, Oriented x3 - Psychiatric Exam Psychiatric exam: Normal Affect, Normal Mood - Skin Skin Exam: Dry, Intact, Normal Color, Warm Results - Vital Signs Recent Vital Signs: Last Vital Signs Temp 97 F L 08/28/17 15:53 Pulse 61 08/28/17 15:53 Resp 15 08/28/17 15:53 BP 97/44 L 08/28/17 15:53 Pulse Ox 100 08/28/17 15:53 - Labs Result Diagrams: 08/28/17 15:44 08/28/17 15:44 Labs: Laboratory Results - last 24 hr 08/28/17 08/28/17 08/28/17 07:15 07:15 15:44 WBC 12.1 H 16.5 H RBC 3.14 L 2.65 L Hgb 10.1 L 8.3 L Hct 29.4 L 24.9 L MCV 93.6 93.9 MCH 32.0 H 31.1 H MCHC 34.2 33.2 RDW 13.0 13.2 Plt Count 189 194 MPV 10.0 10.0 Sodium 131 L Potassium 3.9 Chloride 101 Carbon Dioxide 27 Anion Gap 7 L BUN 22 H Creatinine 0.9 Est GFR ( Amer) > 60 Est GFR (Non-Af Amer) 59 Random Glucose 114 H Calcium 7.8 L Total Bilirubin AST ALT Alkaline Phosphatase Total Protein Albumin Globulin Albumin/Globulin Ratio 08/28/17 15:44 WBC RBC Hgb Hct MCV MCH MCHC RDW Plt Count MPV Sodium 128 L Potassium 4.2 Chloride 102 Carbon Dioxide 24 Anion Gap 7 L BUN 22 H Creatinine 0.7 Est GFR ( Amer) > 60 Est GFR (Non-Af Amer) > 60 Random Glucose 153 H Calcium 7.5 L Total Bilirubin 0.8 AST 22 ALT 19 Alkaline Phosphatase 37 L D Total Protein 4.5 L Albumin 2.2 L D Globulin 2.3 Albumin/Globulin Ratio 1.0 Assessment & Plan - Assessment and Plan (Free Text) Assessment: 87F s/p R. Hip Pinning Plan: Cardio: Atrial Myxoma Cards ([facility]) Observe HTN - Atenolol 25 PO QD Pulm: PRN 02 as needed GI: No complaints : Rivera Renal: Bun 22:7 MSK: s/p R. Hip Pinning Ortho ([facility]) Cipro 500 PO BID Vanco 1 IV QD Morphine 2 IV Q4 Ppx: Lovenox 40 SC QD LR @ 100
[2017-08-28] MEDS: Vancomycin 1 gm/NS 200 ml 1 GM/200 ML BAG IVPB SCH (22:10)
--- NOTE | 2017-08-28 22:48 | CP.PCM.PN ---
Subjective - Date & Time of Evaluation Date of Evaluation: 08/28/17 Time of Evaluation: 18:45 - Subjective Subjective: Pt seen and examined, s/p ORIf, on post op care Objective - Vital Signs/Intake and Output Vital Signs (last 24 hours): Temp Pulse Resp BP Pulse Ox 97.8 F 74 10 L 98/48 L 100 08/28/17 17:15 08/28/17 22:00 08/28/17 22:00 08/28/17 21:51 08/28/17 22:00 Intake and Output: 08/28/17 08/29/17 18:59 06:59 Intake Total 550 900 Output Total 305 60 Balance 245 840 - Medications Medications: Current Medications Atenolol (Tenormin) 25 mg PO DAILY [facility] Last Admin: 08/28/17 11:00 Dose: Not Given Ciprofloxacin (Cipro) 500 mg PO BID [facility] Stop: 08/31/17 11:00 Last Admin: 08/28/17 19:43 Dose: 500 mg Enoxaparin Sodium (Lovenox) 40 mg SC DAILY [facility] Last Admin: 08/28/17 14:15 Dose: Not Given Vancomycin/Sodium Chloride (Vancomycin 1 Gm/Ns 200 Ml) 1 gm in 200 mls @ 133.333 mls/hr IVPB Q12H [facility] Stop: 09/02/17 23:01 Last Admin: 08/28/17 22:10 Dose: 133.333 mls/hr Lactated Ringer's (Lactated Ringer's) 1,000 mls @ 100 mls/hr IV .Q10H [facility] Levothyroxine Sodium (Synthroid) 100 mcg PO DAILY@0630 [facility] Last Admin: 08/28/17 05:53 Dose: 100 mcg Morphine Sulfate (Morphine) 2 mg IVP Q4 PRN PRN Reason: pain Last Admin: 08/27/17 10:47 Dose: 2 mg Rosuvastatin Calcium (Crestor) 10 mg PO [facility] Last Admin: 08/28/17 22:10 Dose: 10 mg Zolpidem Tartrate (Ambien) 5 mg PO HS [facility] Last Admin: 08/28/17 22:10 Dose: 5 mg - Labs Labs: 08/28/17 15:44 08/28/17 15:44 PT 10.9 SECONDS (9.7-12.2) 08/24/17 18:15 INR 1.0 08/24/17 18:15 APTT 25 SECONDS (21-34) 08/24/17 18:15 - Constitutional Appears: No Acute Distress - Head Exam Head Exam: ATRAUMATIC, NORMAL INSPECTION, NORMOCEPHALIC - Eye Exam Eye Exam: EOMI, Normal appearance, PERRL Pupil Exam: NORMAL ACCOMODATION, PERRL - ENT Exam ENT Exam: Mucous Membranes Moist, Normal Exam - Respiratory Exam Respiratory Exam: Clear to Ausculation Bilateral, NORMAL BREATHING PATTERN - Cardiovascular Exam Cardiovascular Exam: REGULAR RHYTHM, +S1, +S2. absent: Murmur - GI/Abdominal Exam GI & Abdominal Exam: Soft, Normal Bowel Sounds. absent: Tenderness Assessment and Plan (1) HTN (hypertension) Status: Acute (2) Hip fracture, right Assessment & Plan: s/p ORIF Status: Acute
[2017-08-29] MEDS: Lactated Ringer's 1,000 ML IV SCH ×4 (00:38→20:53)
[2017-08-29 06:47] LABS: HEMOGLOBIN 8.4 g/dL (11.0-16.0); MEAN CELL VOLUME 94.4 fL (81.0-99.0); MEAN CORPUSCULAR HEMOGLOBIN 32.4 pg (27.0-31.0); MEAN CORPUSCULAR HGB CONC 34.3 g/dL (33.0-37.0); MEAN PLATELET VOLUME 10.2 fL (7.2-11.7); RBC 2.6 Mil/uL (3.80-5.20); RED CELL DISTRIBUTION WIDTH 13.3 % (11.5-14.5); WHITE BLOOD COUNT 11.4 K/uL (4.8-10.8)
[2017-08-29 07:03] LABS: BLOOD UREA NITROGEN 17 mg/dL (7-17); CALCIUM 7.6 mg/dl (8.6-10.4); GFR AFRICAN-AMERICAN > 60; GFR NON-AFRICAN AMERICAN > 60
--- NOTE | 2017-08-29 08:00 | PCM.SURG1 ---
Surgeon's Initial Post Op Note - Surgeon's Notes Surgeon: Blaze Cartwright MD [employer] Lab Technician: None Type of Anesthesia: General Endo Pre-Operative Diagnosis: Right hip displaced intertrochanteric fracture (with extension past level of LT) Operative Findings: Right hip displaced intertrochanteric fracture (with extension past level of LT) Post-Operative Diagnosis: Right hip displaced intertrochanteric fracture (with extension past level of LT) Operation Performed: Right hip IT fracture closed reduction. internal fixation w/ long TFN hip nail Specimen/Specimens Removed: specimen= none. complications= none. implants= Synthes TFNA long nail, 360mm length, 11mm width, 90mm helical blade, 2x distal interlocking screws Estimated Blood Loss: EBL {In ML}: 300 Blood Products Given: N/A Drains Used: No Drains Post-Op Condition: Good Date of Surgery/Procedure: 08/28/17 Time of Surgery/Procedure: 13:00
[2017-08-29] MEDS: Levothyroxine 100 MCG TAB PO SCH (08:06)
[2017-08-29] MEDS: Enoxaparin 40 mg Syringe SC SCH (09:28)
[2017-08-29] MEDS: Vancomycin 1 gm/NS 200 ml 1 GM/200 ML BAG IVPB SCH ×2 (10:04→22:21)
--- NOTE | 2017-08-29 10:39 | CARD ---
APPROVED REPORT EKG Measurement Heart [id number] <Conclusion> Sinus rhythm with marked sinus arrhythmia Otherwise normal ECG
--- NOTE | 2017-08-29 11:55 | CP.CCUPN ---
<Henok Puckett - Last Filed: 08/29/17 12:13> CCU Subjective - Physician Review Events Since Last Encounter (Free Text): 08/29/17 12:02 patient seen and examined at bedside. doing well with no complants at this time pain controlled regular diet remove card remove a line CCU Objective - Vital Signs / Intake & Output Vital Signs (Last 4 hours): Vital Signs Temp Pulse Resp BP Pulse Ox 08/29/17 11:07 79 18 108/47 L 08/29/17 10:07 89 14 91/52 L 100 08/29/17 10:00 88 18 100 08/29/17 09:07 89 20 92/51 L 99 08/29/17 09:00 82 17 100 08/29/17 08:07 89 14 94/51 L 100 08/29/17 08:00 98.6 F 89 19 94/51 L 100 Intake and Output (Last 8hrs): Intake & Output 08/28/17 08/29/17 08/29/17 22:59 06:59 14:59 Intake Total 1250 950 965 Output Total 165 420 130 Balance 1085 530 835 Intake: Intake, IV Amount 800 800 700 Left Antecubital 0 0 Left Forearm 0 Left Hand 800 800 700 Oral 450 150 265 Output: Urine 165 420 130 Urethral (Card) 60 Urine, Voided 420 130 Stool 0 Other: # Bowel Movements 0 0 - Physical Exam Head: Positive for: Atraumatic, Normocephalic Pupils: Positive for: PERRL Extroacular Muscles: Positive for: EOMI Conjunctiva: Positive for: Normal Mouth: Positive for: Moist Mucous Membranes Neck: Positive for: Normal Range of Motion Respiratory/Chest: Positive for: Clear to Auscultation, Good Air Exchange Cardiovascular: Positive for: Regular Rate and Rhythm. Negative for: Murmurs Abdomen: Positive for: Normal Bowel Sounds. Negative for: Tenderness, Distention, Peritoneal Signs Neurological: Positive for: GCS=15, CN II-XII Intact Skin: Positive for: Warm, Dry Psychiatric: Positive for: Alert, Oriented x 3 - Medications Active Medications: Active Medications Generic Name Dose Route Start Last Admin Trade Name Freq PRN Reason Stop Dose Admin Atenolol 25 mg 08/25/17 10:00 08/29/17 09:28 Tenormin PO 25 mg DAILY [facility]E Administration Ciprofloxacin 500 mg 08/26/17 21:00 08/29/17 11:15 Cipro PO 08/31/17 11:00 500 mg BID ELSIE Administration Enoxaparin Sodium 40 mg 08/25/17 10:00 08/29/17 09:28 Lovenox SC 40 mg DAILY [facility]E Administration Vancomycin/Sodium Chloride 1 gm in 200 mls @ 133.333 mls/hr 08/28/17 23:00 10:04 Vancomycin 1 Gm/Ns 200 Ml IVPB 09/02/17 23:01 133.333 mls/hr Q12H [facility] Administration Lactated Ringer's 1,000 mls @ 100 mls/hr 08/28/17 14:15 08/29/17 08:59 Lactated Ringer's IV 100 mls/hr .Q10H [facility] Administration Levothyroxine Sodium 100 mcg 08/25/17 06:30 08/29/17 08:06 Synthroid PO 100 mcg DAILY@0630 [facility] Administration Morphine Sulfate 2 mg 08/24/17 20:35 08/29/17 08:10 Morphine IVP 2 mg Q4 PRN Administration pain Rosuvastatin Calcium 10 mg 08/25/17 22:00 08/28/17 22:10 Crestor PO 10 mg HS [facility]E Administration Zolpidem Tartrate 5 mg 08/24/17 22:00 08/28/17 22:10 Ambien PO 5 mg HS [facility]SIE Administration - Patient Studies Lab Studies: Microbiology Studies 08/26/17 20:10 Urine Culture - Final Urine,Card No Growth (<1,000 CFU/ML) Lab Studies 08/29/17 08/29/17 08/28/17 Range/Units 06:36 06:36 15:44 WBC 11.4 H (4.8-10.8) K/uL RBC 2.60 L (3.80-5.20) Mil/uL Hgb 8.4 L (11.0-16.0) g/dL Hct 24.6 L (34.0-47.0) % MCV 94.4 (81.0-99.0) fL MCH 32.4 H (27.0-31.0) pg MCHC 34.3 (33.0-37.0) g/dL RDW 13.3 (11.5-14.5) % Plt Count 219 (130-400) K/uL MPV 10.2 (7.2-11.7) fL Sodium 130 L 128 L (132-148) mmol/L Potassium 4.3 4.2 (3.6-5.2) mmol/L Chloride 100 102 (98-107) mmol/L Carbon Dioxide 28 24 (22-30) mmol/L Anion Gap 7 L 7 L (10-20) BUN 17 22 H (7-17) mg/dL Creatinine 0.8 0.7 (0.7-1.2) mg/dL Est GFR ( Amer) > 60 > 60 Est GFR (Non-Af Amer) > 60 > 60 Random Glucose 139 H 153 H (65-105) mg/dL Calcium 7.6 L 7.5 L (8.6-10.4) mg/dl Total Bilirubin 0.8 (0.2-1.3) mg/dL AST 22 (14-36) U/L ALT 19 (9-52) U/L Alkaline Phosphatase 37 L D (38-126) U/L Total Protein 4.5 L (6.3-8.3) g/dL Albumin 2.2 L D (3.5-5.0) g/dL Globulin 2.3 (2.2-3.9) gm/dL Albumin/Globulin Ratio 1.0 (1.0-2.1) 08/28/17 Range/Units 15:44 WBC 16.5 H (4.8-10.8) K/uL RBC 2.65 L (3.80-5.20) Mil/uL Hgb 8.3 L (11.0-16.0) g/dL Hct 24.9 L (34.0-47.0) % MCV 93.9 (81.0-99.0) fL MCH 31.1 H (27.0-31.0) pg MCHC 33.2 (33.0-37.0) g/dL RDW 13.2 (11.5-14.5) % Plt Count 194 (130-400) K/uL MPV 10.0 (7.2-11.7) fL Sodium (132-148) mmol/L Potassium (3.6-5.2) mmol/L Chloride (98-107) mmol/L Carbon Dioxide (22-30) mmol/L Anion Gap (10-20) BUN (7-17) mg/dL Creatinine (0.7-1.2) mg/dL Est GFR ( Amer) Est GFR (Non-Af Amer) Random Glucose (65-105) mg/dL Calcium (8.6-10.4) mg/dl Total Bilirubin (0.2-1.3) mg/dL AST (14-36) U/L ALT (9-52) U/L Alkaline Phosphatase (38-126) U/L Total Protein (6.3-8.3) g/dL Albumin (3.5-5.0) g/dL Globulin (2.2-3.9) gm/dL Albumin/Globulin Ratio (1.0-2.1) Laboratory Results - last 24 hr 08/28/17 08/28/17 08/29/17 15:44 15:44 06:36 WBC 16.5 H 11.4 H RBC 2.65 L 2.60 L Hgb 8.3 L 8.4 L Hct 24.9 L 24.6 L MCV 93.9 94.4 MCH 31.1 H 32.4 H MCHC 33.2 34.3 RDW 13.2 13.3 Plt Count 194 219 MPV 10.0 10.2 Sodium 128 L Potassium 4.2 Chloride 102 Carbon Dioxide 24 Anion Gap 7 L BUN 22 H Creatinine 0.7 Est GFR ( Amer) > 60 Est GFR (Non-Af Amer) > 60 Random Glucose 153 H Calcium 7.5 L Total Bilirubin 0.8 AST 22 ALT 19 Alkaline Phosphatase 37 L D Total Protein 4.5 L Albumin 2.2 L D Globulin 2.3 Albumin/Globulin Ratio 1.0 08/29/17 06:36 WBC RBC Hgb Hct MCV MCH MCHC RDW Plt Count MPV Sodium 130 L Potassium 4.3 Chloride 100 Carbon Dioxide 28 Anion Gap 7 L BUN 17 Creatinine 0.8 Est GFR ( Amer) > 60 Est GFR (Non-Af Amer) > 60 Random Glucose 139 H Calcium 7.6 L Total Bilirubin AST ALT Alkaline Phosphatase Total Protein Albumin Globulin Albumin/Globulin Ratio EKG/Cardiology Studies: Cardiology / EKG Studies 08/28/17 16:02 EKG [ELECTROCARDIOGRAM] Routine Comment: Mode Of Transportation: Reason For Exam: postop Critical Care Progress Note - Nutrition Nutrition: Nutrition Category Date Time Status Regular Diet [DIET] Diets 08/28/17 Lunch Active Assessment/Plan - Assessment and Plan (Free Text) Assessment: 87F s/p R. Hip Pinning Plan: Cardio: Atrial Myxoma Cards ([facility]) Observe HTN - Atenolol 25 PO QD Pulm: PRN 02 as needed GI: No complaints : Card d/c MSK: s/p R. Hip Pinning Ortho ([facility]) Cipro 500 PO BID Vanco 1 IV QD Morphine 2 IV Q4 Ppx: Lovenox 40 SC QD LR @ 100 <Latef,Mynor M - Last Filed: 08/29/17 18:51> CCU Objective - Vital Signs / Intake & Output Vital Signs (Last 4 hours): Vital Signs Temp Pulse Resp BP Pulse Ox 08/29/17 17:07 81 17 98/46 L 99 08/29/17 16:07 78 16 112/43 L 100 08/29/17 16:00 97.5 F L 81 20 98/46 L 100 08/29/17 15:07 73 18 103/45 L 100 Intake and Output (Last 8hrs): Intake & Output 08/29/17 08/29/17 08/29/17 06:59 14:59 22:59 Intake Total 950 1585 530 Output Total 420 310 0 Balance 530 1275 530 Intake: Intake, IV Amount 800 1000 300 Left Antecubital 0 Left Hand 800 1000 300 Oral 150 585 230 Output: Urine 420 310 0 Urethral (Card) 310 Urine, Voided 420 0 Stool 0 0 Other: # Bowel Movements 0 0 - Medications Active Medications: Active Medications Generic Name Dose Route Start Last Admin Trade Name Freq PRN Reason Stop Dose Admin Atenolol 25 mg 08/25/17 10:00 08/29/17 09:28 Tenormin PO 25 mg DAILY [facility]E Administration Ciprofloxacin 500 mg 08/26/17 21:00 08/29/17 17:24 Cipro PO 08/31/17 11:00 500 mg BID ELSIE Administration Docusate Sodium 100 mg 08/29/17 18:30 Colace PO BID ELSIE Enoxaparin Sodium 40 mg 08/25/17 10:00 08/29/17 09:28 Lovenox SC 40 mg DAILY [facility] Administration Vancomycin/Sodium Chloride 1 gm in 200 mls @ 133.333 mls/hr 08/28/17 23:00 10:04 Vancomycin 1 Gm/Ns 200 Ml IVPB 09/02/17 23:01 133.333 mls/hr Q12H [facility] Administration Lactated Ringer's 1,000 mls @ 100 mls/hr 08/28/17 14:15 08/29/17 11:40 Lactated Ringer's IV 100 mls/hr .Q10H [facility]E Administration Levothyroxine Sodium 100 mcg 08/25/17 06:30 08/29/17 08:06 Synthroid PO 100 mcg DAILY@0630 [facility] Administration Morphine Sulfate 2 mg 08/24/17 20:35 08/29/17 08:10 Morphine IVP 2 mg Q4 PRN Administration pain Rosuvastatin Calcium 10 mg 08/25/17 22:00 08/28/17 22:10 Crestor PO 10 mg HS ELSIE Administration Zolpidem Tartrate 5 mg 08/24/17 22:00 08/28/17 22:10 Ambien PO 5 mg HS ELSIE Administration - Patient Studies Lab Studies: Microbiology Studies 08/26/17 20:10 Urine Culture - Final Urine,Card No Growth (<1,000 CFU/ML) Lab Studies 08/29/17 08/29/17 Range/Units 06:36 06:36 WBC 11.4 H (4.8-10.8) K/uL RBC 2.60 L (3.80-5.20) Mil/uL Hgb 8.4 L (11.0-16.0) g/dL Hct 24.6 L (34.0-47.0) % MCV 94.4 (81.0-99.0) fL MCH 32.4 H (27.0-31.0) pg MCHC 34.3 (33.0-37.0) g/dL RDW 13.3 (11.5-14.5) % Plt Count 219 (130-400) K/uL MPV 10.2 (7.2-11.7) fL Sodium 130 L (132-148) mmol/L Potassium 4.3 (3.6-5.2) mmol/L Chloride 100 (98-107) mmol/L Carbon Dioxide 28 (22-30) mmol/L Anion Gap 7 L (10-20) BUN 17 (7-17) mg/dL Creatinine 0.8 (0.7-1.2) mg/dL Est GFR ( Amer) > 60 Est GFR (Non-Af Amer) > 60 Random Glucose 139 H (65-105) mg/dL Calcium 7.6 L (8.6-10.4) mg/dl Laboratory Results - last 24 hr 08/29/17 08/29/17 06:36 06:36 WBC 11.4 H RBC 2.60 L Hgb 8.4 L Hct 24.6 L MCV 94.4 MCH 32.4 H MCHC 34.3 RDW 13.3 Plt Count 219 MPV 10.2 Sodium 130 L Potassium 4.3 Chloride 100 Carbon Dioxide 28 Anion Gap 7 L BUN 17 Creatinine 0.8 Est GFR ( Amer) > 60 Est GFR (Non-Af Amer) > 60 Random Glucose 139 H Calcium 7.6 L Critical Care Progress Note - Nutrition Nutrition: Nutrition Category Date Time Status Regular Diet [DIET] Diets 08/28/17 Lunch Active Attending/Attestation - Attestation I have personally seen and examined this patient.: Yes I have fully participated in the care of the patient.: Yes I have reviewed all pertinent clinical information: Yes Notes (Text): 08/29/17 18:51 Today: August The Patient was seen and examined at the bedside, Medical records reviewed, and management issues were discussed and formulated with the house staff. I have reviewed all the relevant clinical, laboratory, hemodynamic, radiographic data and medications Events reviewed Pain issues, skin care, head of the bed elevation, glycemic control were addressed. Agree with above resident's assessment and treatment plans of care as transcribed in Dr. Puckett note.
--- NOTE | 2017-08-29 12:09 | CARD ---
APPROVED REPORT EKG Measurement Heart [id number] <Conclusion> Sinus rhythm with occasional premature ventricular complexes Otherwise normal ECG
--- NOTE | 2017-08-29 15:05 | PROCN ---
DATE: SUBJECTIVE: The patient underwent right hip intertrochanteric fracture, closed reduction and internal fixation with long nail. The patient is currently in the recovery room. She denies any chest pain or shortness of breath. No reported ventricular arrhythmia. PHYSICAL EXAMINATION: VITAL SIGNS: Blood pressure 96/44, heart rate 63, temperature 97.1, respirations 11. HEENT: Pale conjunctivae. CHEST: Clear. HEART: S1 and S2 regular. ABDOMEN: Soft. EXTREMITIES: No edema. LABORATORY DATA: An SMA-7 this morning: Sodium 131, potassium 3.9, chloride 101, CO2 27, glucose 115, BUN 22, creatinine 0.9. Hemoglobin and hematocrit postoperatively is 8.3 and 24.9 with a drop of nearly 2 g of hemoglobin; white count is 16.5, platelet count 194,000. ASSESSMENT: 1. Status post right hip intertrochanteric fracture, closed reduction and internal fixation with a long nail. 2. 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 3. Anemia postoperatively. RECOMMENDATIONS: Continue current IV vancomycin at 1 g q. 12 hours, continue Dilaudid 0.25 mg p.r.n. Continue lactated Ringers at 100 mL per hour. Receive Tenormin 25 mg daily. I discussed the case with computer operator, Dr. Grover, who will accept the patient in the ICU overnight. I did discuss the case with Dr. Geiger, the anesthesiologist, and with Dr. Cartwright, the orthopedic surgeon. In the meantime, I will request basic chemistry as well as EKG now. Donal Mcintosh MD
--- NOTE | 2017-08-29 15:46 | CP.PCM.PN ---
Subjective - Date & Time of Evaluation Date of Evaluation: 08/29/17 Time of Evaluation: 15:44 - Subjective Subjective: Patient comfortable, pain controlled. Objective - Vital Signs/Intake and Output Vital Signs (last 24 hours): Temp Pulse Resp BP Pulse Ox 97.8 F 73 18 103/45 L 100 08/29/17 12:00 08/29/17 15:07 08/29/17 15:07 08/29/17 15:07 08/29/17 15:07 Intake and Output: 08/29/17 08/29/17 06:59 18:59 Intake Total 1850 1685 Output Total 480 310 Balance 1370 1375 - Medications Medications: Current Medications Atenolol (Tenormin) 25 mg PO DAILY [facility] Last Admin: 08/29/17 09:28 Dose: 25 mg Ciprofloxacin (Cipro) 500 mg PO BID [facility] Stop: 08/31/17 11:00 Last Admin: 08/29/17 11:15 Dose: 500 mg Enoxaparin Sodium (Lovenox) 40 mg SC DAILY [facility] Last Admin: 08/29/17 09:28 Dose: 40 mg Vancomycin/Sodium Chloride (Vancomycin 1 Gm/Ns 200 Ml) 1 gm in 200 mls @ 133.333 mls/hr IVPB Q12H [facility] Stop: 09/02/17 23:01 Last Admin: 08/29/17 10:04 Dose: 133.333 mls/hr Lactated Ringer's (Lactated Ringer's) 1,000 mls @ 100 mls/hr IV .Q10H [facility] Last Admin: 08/29/17 11:40 Dose: 100 mls/hr Levothyroxine Sodium (Synthroid) 100 mcg PO DAILY@0630 [facility] Last Admin: 08/29/17 08:06 Dose: 100 mcg Morphine Sulfate (Morphine) 2 mg IVP Q4 PRN PRN Reason: pain Last Admin: 08/29/17 08:10 Dose: 2 mg Rosuvastatin Calcium (Crestor) 10 mg PO HS [facility] Last Admin: 08/28/17 22:10 Dose: 10 mg Zolpidem Tartrate (Ambien) 5 mg PO HS [facility] Last Admin: 08/28/17 22:10 Dose: 5 mg - Labs Labs: 08/29/17 06:36 08/29/17 06:36 PT 10.9 SECONDS (9.7-12.2) 08/24/17 18:15 INR 1.0 08/24/17 18:15 APTT 25 SECONDS (21-34) 08/24/17 18:15 - Extremities Exam Additional comments: +ROM ankle/toes sensation intact dressing intact, no visible drainage, thigh mild swelling, soft heel protector boots intact +DP pulse calves soft NT neg homans Assessment and Plan (1) Displaced intertrochanteric fracture of right femur Assessment & Plan: POD#1 PT/OT VTE proph encourage OOB f/u labs in am ortho stable d/w Dr. Cartwright, agrees with above Status: Acute
--- NOTE | 2017-08-29 21:22 | CP.PCM.PN ---
Subjective - Date & Time of Evaluation Date of Evaluation: 08/29/17 Time of Evaluation: 20:15 - Subjective Subjective: Pt seen and evalauted, POD#1 on post op care Objective - Vital Signs/Intake and Output Vital Signs (last 24 hours): Temp Pulse Resp BP Pulse Ox 98.6 F 78 18 109/46 L 98 08/29/17 21:00 08/29/17 21:00 08/29/17 21:00 08/29/17 21:00 08/29/17 21:00 Intake and Output: 08/29/17 08/30/17 18:59 06:59 Intake Total 2265 100 Output Total 310 Balance 1955 100 - Medications Medications: Current Medications Atenolol (Tenormin) 25 mg PO DAILY [facility] Last Admin: 08/29/17 09:28 Dose: 25 mg Ciprofloxacin (Cipro) 500 mg PO BID [facility] Stop: 08/31/17 11:00 Last Admin: 08/29/17 17:24 Dose: 500 mg Docusate Sodium (Colace) 100 mg PO BID [facility] Last Admin: 08/29/17 19:02 Dose: 100 mg Enoxaparin Sodium (Lovenox) 40 mg SC DAILY [facility] Last Admin: 08/29/17 09:28 Dose: 40 mg Vancomycin/Sodium Chloride (Vancomycin 1 Gm/Ns 200 Ml) 1 gm in 200 mls @ 133.333 mls/hr IVPB Q12H [facility] Stop: 09/02/17 23:01 Last Admin: 08/29/17 10:04 Dose: 133.333 mls/hr Lactated Ringer's (Lactated Ringer's) 1,000 mls @ 100 mls/hr IV .Q10H [facility] Last Admin: 08/29/17 11:40 Dose: 100 mls/hr Levothyroxine Sodium (Synthroid) 100 mcg PO DAILY@0630 [facility] Last Admin: 08/29/17 08:06 Dose: 100 mcg Morphine Sulfate (Morphine) 2 mg IVP Q4 PRN PRN Reason: pain Last Admin: 08/29/17 08:10 Dose: 2 mg Rosuvastatin Calcium (Crestor) 10 mg PO [facility] Last Admin: 08/28/17 22:10 Dose: 10 mg Zolpidem Tartrate (Ambien) 5 mg PO [facility] Last Admin: 01/17/18 22:10 Dose: 5 mg - Labs Labs: 08/29/17 06:36 08/29/17 06:36 PT 10.9 SECONDS (9.7-12.2) 08/24/17 18:15 INR 1.0 08/24/17 18:15 APTT 25 SECONDS (21-34) 08/24/17 18:15 - Extremities Exam Additional comments: +ROM ankle/toes sensation intact dressing intact, no visible drainage, thigh mild swelling, soft heel protector boots intact +DP pulse calves soft NT neg homans Assessment and Plan (1) HTN (hypertension) Status: Acute (2) Hip fracture, right Assessment & Plan: (1) Displaced intertrochanteric fracture of right femur Assessment & Plan: POD#1 PT/OT VTE proph encourage OOB f/u labs in am ortho stable Status: Acute Status: Acute
[2017-08-30 07:03] LABS: MEAN CELL VOLUME 94.5 fL (81.0-99.0); MEAN CORPUSCULAR HEMOGLOBIN 32.1 pg (27.0-31.0); MEAN PLATELET VOLUME 9.4 fL (7.2-11.7); RBC 2.17 Mil/uL (3.80-5.20); RED CELL DISTRIBUTION WIDTH 13.2 % (11.5-14.5); WHITE BLOOD COUNT 10.4 K/uL (4.8-10.8)
[2017-08-30] MEDS: Levothyroxine 100 MCG TAB PO SCH (07:36)
[2017-08-30] MEDS: Lactated Ringer's 1,000 ML IV SCH (08:34)
--- NOTE | 2017-08-30 08:43 | PN ---
DATE: 08/29/2017 SUBJECTIVE: The patient denies any chest pain. No shortness of breath. No reported ventricular arrhythmia or atrial fibrillation. PHYSICAL EXAMINATION: VITAL SIGNS: Blood pressure 108/47, heart rate 89, respirations 14, and temperature 98.6. HEENT: Pale conjunctivae. CHEST: Clear. HEART: S1 and S2 regular. ABDOMEN: Soft. EXTREMITIES: No edema. LABORATORY DATA: SMA-7, sodium 130, potassium 4.3, chloride 100, CO2 28, glucose 139, BUN 17, and creatinine 0.8. Today's hemoglobin and hematocrit are 8.4 and 24.6, white count 11.4, and platelet count 219,000. Yesterday's postoperative EKG revealed sinus rhythm with occasional PVCs. ASSESSMENT: 1. Status post right hip intertrochanteric fracture closed reduction internal fixation. 2. 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 3. Anemia. CONDITIONS: Continue atenolol 25 mg once a day, Synthroid 100 mcg once a day, vancomycin at 1 g intravenously q.12 hours, Lovenox at 40 mg daily, and Crestor 10 mg once a day. DIPAK was initially scheduled for today was canceled. Discussed with the anesthesia team. It will be unsafe to position the patient in a lateral position soon after her surgery to perform DIPAK and DIPAK can be done at much later time following reasonable recovery from the patient's recent surgery. Donal Mcintosh MD
[2017-08-30 10:00] LABS: BLOOD UREA NITROGEN 13 mg/dL (7-17); CALCIUM 7.5 mg/dl (8.6-10.4); GFR AFRICAN-AMERICAN > 60; GFR NON-AFRICAN AMERICAN 59
[2017-08-30 11:06] LABS: BASO # 0.1 K/uL (0.0-0.2); BASO % 0.6 % (0.0-2.0); EOS # 0.2 K/uL (0.0-0.7); EOS % 1.9 % (0.0-4.0); HEMOGLOBIN 7.1 g/dL (11.0-16.0); LYMPH # 2.2 K/uL (1.0-4.3); LYMPH % 21.3 % (20.0-40.0); MEAN CELL VOLUME 94.2 fL (81.0-99.0); MEAN CORPUSCULAR HEMOGLOBIN 32.5 pg (27.0-31.0); MEAN CORPUSCULAR HGB CONC 34.5 g/dL (33.0-37.0); MEAN PLATELET VOLUME 9.3 fL (7.2-11.7); MONO # 0.7 K/uL (0.0-0.8); MONO % 6.6 % (0.0-10.0); NEUT # 7.3 K/uL (1.8-7.0); NEUT % 69.6 % (50.0-75.0); RBC 2.19 Mil/uL (3.80-5.20); RED CELL DISTRIBUTION WIDTH 13.1 % (11.5-14.5); WHITE BLOOD COUNT 10.5 K/uL (4.8-10.8)
[2017-08-30] MEDS: Enoxaparin 40 mg Syringe SC SCH (12:55)
--- NOTE | 2017-08-30 18:29 | PN ---
DATE: SUBJECTIVE: The patient denies any chest pain or shortness of breath. No reported ventricular arrhythmia. PHYSICAL EXAMINATION: VITAL SIGNS: Blood pressure 113/48, heart rate 90, temperature 99.1, and respirations 16. HEENT: Pale conjunctivae. CHEST: Clear. HEART: S1 and S2, regular. ABDOMEN: Soft. EXTREMITIES: is applied to both lower extremities. LABORATORY DATA: SMA-7; sodium 128, potassium 3.7, chloride 99, CO2 of 27, glucose 117, BUN 15, and creatinine 0.9. Hemoglobin and hematocrit 7.1 and 20.6, white count and platelet count are within normal limit. ASSESSMENT: 1. Status post closed reduction and internal fixation with a long nail for right intertrochanteric fracture. 2. 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 3. Anemia. 4. Hyponatremia. RECOMMENDATIONS: Continue Tenormin 25 mg once a day, Synthroid 100 mcg once a day, subcutaneous Lovenox is on hold today. Continue Lasix 20 mg intravenously once a day and Crestor 10 mg once a day. The patient would receive packed RBC transfusion today. We will monitor the patient for any signs of volume overload. Case was discussed with the patient's son and niece at the bedside. Donal Mcintosh MD
--- NOTE | 2017-08-30 23:21 | CP.PCM.PN ---
Subjective - Date & Time of Evaluation Date of Evaluation: 08/30/17 Time of Evaluation: 18:50 - Subjective Subjective: Pt seen and evalauted, dropped Hb and she is for blood transfusion Objective - Vital Signs/Intake and Output Vital Signs (last 24 hours): Temp Pulse Resp BP Pulse Ox 99.2 F 70 19 102/49 L 98 08/30/17 21:25 08/30/17 21:25 08/30/17 21:25 08/30/17 21:25 08/30/17 18:50 Intake and Output: 08/30/17 08/31/17 18:59 06:59 Intake Total 2660 150 Output Total 800 Balance 1860 150 - Medications Medications: Current Medications Acetaminophen (Tylenol 325mg Tab) 650 mg PO ONCE PRN PRN Reason: pre transfusion Last Admin: 08/30/17 13:50 Dose: 650 mg Atenolol (Tenormin) 25 mg PO DAILY [facility] Last Admin: 08/30/17 09:50 Dose: 25 mg Ciprofloxacin (Cipro) 500 mg PO BID [facility] Stop: 08/31/17 11:00 Last Admin: 08/30/17 17:47 Dose: 500 mg Docusate Sodium (Colace) 100 mg PO BID [facility] Last Admin: 08/30/17 17:47 Dose: 100 mg Enoxaparin Sodium (Lovenox) 40 mg SC DAILY [facility] Last Admin: 08/30/17 12:55 Dose: Not Given Furosemide (Lasix) 20 mg IVP ONCE PRN PRN Reason: Swelling Last Admin: 08/30/17 17:37 Dose: 20 mg Lactated Ringer's (Lactated Ringer's) 1,000 mls @ 100 mls/hr IV .Q10H [facility] Last Admin: 08/30/17 08:34 Dose: 100 mls/hr Clindamycin Phosphate 900 mg/ (Sodium Chloride) 56 mls @ 100 mls/hr IVPB Q8 [facility] Last Admin: 08/30/17 21:40 Dose: 100 mls/hr Levothyroxine Sodium (Synthroid) 100 mcg PO DAILY@0630 [facility] Last Admin: 08/30/17 07:36 Dose: 100 mcg Morphine Sulfate (Morphine) 2 mg IVP Q4 PRN PRN Reason: pain Last Admin: 08/30/17 16:58 Dose: 2 mg Rosuvastatin Calcium (Crestor) 10 mg PO HS [facility] Last Admin: 08/30/17 21:40 Dose: 10 mg Zolpidem Tartrate (Ambien) 5 mg PO [facility] Last Admin: 08/30/17 21:41 Dose: 5 mg - Labs Labs: 08/30/17 11:02 08/30/17 06:52 PT 10.9 SECONDS (9.7-12.2) 08/24/17 18:15 INR 1.0 08/24/17 18:15 APTT 25 SECONDS (21-34) 08/24/17 18:15 - Constitutional Appears: No Acute Distress - Head Exam Head Exam: ATRAUMATIC, NORMAL INSPECTION, NORMOCEPHALIC - Eye Exam Eye Exam: EOMI, Normal appearance, PERRL Pupil Exam: NORMAL ACCOMODATION, PERRL - ENT Exam ENT Exam: Mucous Membranes Moist, Normal Exam - Neck Exam Neck Exam: Full ROM - Respiratory Exam Respiratory Exam: Clear to Ausculation Bilateral, NORMAL BREATHING PATTERN - Cardiovascular Exam Cardiovascular Exam: REGULAR RHYTHM, +S1, +S2. absent: Murmur - GI/Abdominal Exam GI & Abdominal Exam: Soft, Normal Bowel Sounds. absent: Tenderness - Rectal Exam Rectal Exam: Deferred - Skin Skin Exam: Pallor Assessment and Plan (1) HTN (hypertension) Status: Acute (2) Hip fracture, right Status: Acute (3) Anemia due to blood loss Assessment & Plan: intra operative blood loss caused ddropped in Hb pt had blood transfusion Status: Acute
[2017-08-31] MEDS: Levothyroxine 100 MCG TAB PO SCH (06:05)
[2017-08-31 06:53] LABS: BASO # 0.1 K/uL (0.0-0.2); BASO % 0.9 % (0.0-2.0); EOS # 0.4 K/uL (0.0-0.7); EOS % 3.1 % (0.0-4.0); HEMOGLOBIN 9.6 g/dL (11.0-16.0); LYMPH # 2.3 K/uL (1.0-4.3); MEAN CELL VOLUME 92.1 fL (81.0-99.0); MEAN CORPUSCULAR HEMOGLOBIN 31.7 pg (27.0-31.0); MEAN CORPUSCULAR HGB CONC 34.4 g/dL (33.0-37.0); MEAN PLATELET VOLUME 9.1 fL (7.2-11.7); MONO # 0.6 K/uL (0.0-0.8); MONO % 5.2 % (0.0-10.0); NEUT # 8.2 K/uL (1.8-7.0); NEUT % 70.8 % (50.0-75.0); RBC 3.03 Mil/uL (3.80-5.20); WHITE BLOOD COUNT 11.6 K/uL (4.8-10.8)
[2017-08-31 07:10] LABS: ALBUMIN 2.4 g/dL (3.5-5.0); ALT/SGPT 25 U/L (9-52); AST/SGOT 23 U/L (14-36); BLOOD UREA NITROGEN 15 mg/dL (7-17); CALCIUM 7.6 mg/dl (8.6-10.4); GFR AFRICAN-AMERICAN > 60; GFR NON-AFRICAN AMERICAN 59; MAGNESIUM 1.7 mg/dL (1.6-2.3)
[2017-08-31] MEDS ORDERED: Potassium Chloride 20 mEq ER Tab PO ONE ×2 (15:06→16:15)
[2017-08-31] MEDS ORDERED: Potassium Chloride 20 mEq/15 ml LIQ UD PO STA (16:00)
--- NOTE | 2017-08-31 17:25 | PN ---
DATE: FOLLOWUP SUBJECTIVE: The patient denies any chest pain. She complains pain at the surgical site. No shortness of breath. PHYSICAL EXAMINATION: VITAL SIGNS: Blood pressure 112/54, heart rate 78, temperature 99.1, respirations 16. HEENT: Pale conjunctivae. CHEST: Clear. HEART: S1 and S2 regular. ABDOMEN: Soft. EXTREMITIES: No edema. LABORATORY DATA: Hemoglobin and hematocrit 9.6 and 28.0 following transfusion of 2 units of packed RBCs. White count 11.6, platelet count 234,000. Today's SMA-7: Sodium 132, potassium 3.5, chloride 99, CO2 of 32, glucose 119, BUN 15, creatinine 0.9. ASSESSMENT: 1. Status post closed reduction and internal fixation with long nail for right intertrochanteric fracture. 2. 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 3. Anemia, status post 2 units of packed red blood cells transfusion. 4. Hypokalemia. 5. Improved hyponatremia. RECOMMENDATIONS: Continue current IV clindamycin 900 mg q. 8 hours. Continue Tenormin 25 mg once a day, Synthroid 100 mg once day, Lovenox is 40 mg subcutaneously once a day, Lasix at 20 mg intravenously once a day. The patient received K-Dur 20 mg mEq today. Obtain a followup BMP in the a.m. Donal Mcintosh MD
--- NOTE | 2017-08-31 23:49 | CP.PCM.PN ---
Subjective - Date & Time of Evaluation Date of Evaluation: 08/31/17 Time of Evaluation: 20:45 - Subjective Subjective: Pt seen and evaluated, HB is imprived, pt is feeling better Objective - Vital Signs/Intake and Output Vital Signs (last 24 hours): Temp Pulse Resp BP Pulse Ox 99.1 F 89 96 H 113/71 99 08/31/17 18:24 08/31/17 18:24 08/31/17 18:24 08/31/17 18:24 08/31/17 16:00 Intake and Output: 08/31/17 09/01/17 18:59 06:59 Intake Total 800 50 Output Total 500 150 Balance 300 -100 - Medications Medications: Current Medications Acetaminophen (Tylenol 325mg Tab) 650 mg PO ONCE PRN PRN Reason: pre transfusion Last Admin: 08/30/17 13:50 Dose: 650 mg Atenolol (Tenormin) 25 mg PO DAILY [facility] Last Admin: 08/31/17 09:40 Dose: 25 mg Docusate Sodium (Colace) 100 mg PO BID [facility] Last Admin: 08/31/17 17:06 Dose: 100 mg Enoxaparin Sodium (Lovenox) 40 mg SC DAILY [facility] Last Admin: 08/30/17 12:55 Dose: Not Given Furosemide (Lasix) 20 mg IVP ONCE PRN PRN Reason: Swelling Last Admin: 08/30/17 17:37 Dose: 20 mg Lactated Ringer's (Lactated Ringer's) 1,000 mls @ 100 mls/hr IV .Q10H [facility] Last Admin: 08/30/17 08:34 Dose: 100 mls/hr Clindamycin Phosphate 900 mg/ (Sodium Chloride) 56 mls @ 100 mls/hr IVPB Q8 [facility] Last Admin: 08/31/17 21:29 Dose: 100 mls/hr Levothyroxine Sodium (Synthroid) 100 mcg PO DAILY@0630 [facility] Last Admin: 08/31/17 06:05 Dose: 100 mcg Morphine Sulfate (Morphine) 2 mg IVP Q4 PRN PRN Reason: pain Last Admin: 08/31/17 17:06 Dose: 2 mg Rosuvastatin Calcium (Crestor) 10 mg PO HS [facility] Last Admin: 08/31/17 21:29 Dose: 10 mg Zolpidem Tartrate (Ambien) 5 mg PO HS [facility] Last Admin: 08/31/17 21:29 Dose: 5 mg - Labs Labs: 08/31/17 06:39 08/31/17 06:39 PT 10.9 SECONDS (9.7-12.2) 08/24/17 18:15 INR 1.0 08/24/17 18:15 APTT 25 SECONDS (21-34) 08/24/17 18:15 - Constitutional Appears: No Acute Distress - Head Exam Head Exam: ATRAUMATIC, NORMAL INSPECTION, NORMOCEPHALIC - Eye Exam Eye Exam: EOMI, Normal appearance, PERRL Pupil Exam: NORMAL ACCOMODATION, PERRL - Respiratory Exam Respiratory Exam: Clear to Ausculation Bilateral, NORMAL BREATHING PATTERN - Cardiovascular Exam Cardiovascular Exam: REGULAR RHYTHM, +S1, +S2. absent: Murmur - GI/Abdominal Exam GI & Abdominal Exam: Soft, Normal Bowel Sounds. absent: Tenderness - Neurological Exam Neurological Exam: Alert, Awake, CN II-XII Intact, Normal Gait, Oriented x3 Assessment and Plan (1) HTN (hypertension) Status: Acute (2) Hip fracture, right Status: Acute (3) Anemia due to blood loss Status: Acute
--- NOTE | 2017-09-01 00:12 | CARD ---
APPROVED REPORT EKG Measurement Heart [id number] <Conclusion> Sinus rhythm with premature supraventricular complexes Otherwise normal ECG
--- NOTE | 2017-09-01 04:37 | OP ---
PROCEDURE DATE: 08/28/2017 PREOPERATIVE DIAGNOSIS: Right hip displaced intertrochanteric fracture with extension past the level of lesser trochanter. POSTOPERATIVE DIAGNOSIS: Right hip displaced intertrochanteric fracture with extension past the level of lesser trochanter. PROCEDURE: Right hip intertrochanteric hip fracture closed reduction and internal fixation with long TFN hip nail. SURGEON: Blaze Cartwright MD [employer] OPERATOR: Hermelinda Lai DPM, PGY-2, podiatry resident. TYPE OF ANESTHESIA: General endotracheal anesthesia. SPECIMENS: None. COMPLICATIONS: None. IMPLANTS: Synthes TFNA long nail, 360 mm length, 11 mm width, 90 mm length helical blade, 2 distal interlocking screws. ESTIMATED BLOOD LOSS: 300 mL. DRAINS: None. DISPOSITION: The patient was extubated and transferred to PACU in stable condition and tolerated the procedure well. INDICATION FOR SURGERY: The patient is an 87-year-old female with a past medical history significant for hypertension, hypothyroidism, who presented to the Emergency Room at [facility] on 08/24/2017 after a fall at home, landing on her right hip. She developed immediate 10/10 hip pain and was unable to ambulate. She was brought to the Emergency Room of [facility] on 08/24/2017 via EMS. After evaluation by ER staff and review of imaging, she was diagnosed with a right hip displaced intertrochanteric hip fracture and admitted to the Medical Service under Dr. Cheo Flaherty for definitive care. After review of imaging, Orthopedic consultation was placed and I evaluated the patient as an inpatient and gave initial recommendations over the phone through the ER. Review of imaging, x-rays taken on 08/24/2017 of the right hip and femur showed displaced intertrochanteric right hip fracture with extension beyond the level of the lesser trochanter. CAT scan done of right hip on 08/24/2017: Displaced intertrochanteric hip fracture with extension beyond the level of the lesser trochanter. No evidence of pathologic fracture. I evaluated the patient. I spent a long time with the patient and her son, explaining the nature of her injury and the surgical intervention required. She was indicated for right hip intertrochanteric hip fracture, closed reduction versus open reduction, and placement of intramedullary hip nail. The risks, benefits and alternatives to the procedure were discussed at length with the patient and her family with the risks including but not limited to infection, neurovascular damage, malunion, nonunion, failure of hardware, development of chronic pain and disability, development of blood clots including DVT and PE, cardiopulmonary complications, anesthesia reactions, , need for further surgery including conversion to total hip arthroplasty and removal of hardware, failure of hardware, development of chronic pain and disability. After answering all of her questions, she stated that she understood the risks and wished to proceed with surgery. She underwent preoperative cardiac and medical optimization and was determined to be optimized as much as she can be for the surgery. 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 PROCEDURE IN DETAIL: The patient was identified in the preoperative holding area and the right hip was marked for surgery. Once again, as described above, the risks, benefits and alternatives to the procedure were discussed at length with the patient and informed consent was obtained. After a brief discussion with the Anesthesia staff, 1 g vancomycin was administered as IV perioperative antibiotic, and the patient was taken to operating room on her stretcher. The patient was placed under general anesthesia without any difficulty or complication. The patient was carefully transferred to the fracture top table. The right lower extremity was well padded and placed in the fracture boot in the traction device. The left lower extremity was placed in a well-padded well leg chapin. The right upper extremity was padded at the neurovascular structures and secured across the chest. The left upper extremity was secured to an armboard that was well padded. All bony prominence and superficial neurovascular structures were well padded. The perineal post was secured in position. A final time-out was done with the surgeon, Anesthesia staff, OR staff, and all were in agreement with the patient, procedure being done, and the extremity being operated on. With the help of biplanar fluoroscopic imaging, an attempt was made at a closed reduction for this right hip intertrochanteric hip fracture. After multiple closed reduction maneuvers, finally near-anatomic reduction was obtained in satisfactory position. At that point in time, the right hip was prepped and draped in standard sterile fashion. With the help of a K-wire, optimal entry point at the tip of the greater trochanter was identified and a small incision was made proximal to the greater trochanter at the lateral aspect of the thigh measuring 3 cm. The incision was made through skin, down to subcutaneous tissue, while maintaining good hemostasis. K-wire was advanced through the fascia to the tip of the greater trochanter down through the level of the lesser trochanter. The proximal reamer was advanced with the soft tissue protector and positioned, and the proximal aspect of the femur was reamed to allow for placement of the nail. At that point in time, reamer and initial K-wire were removed and the beaded-tip guidewire was advanced, past the level of the fracture, down to the superior pole of the patella intramedullary position. With the help of fluoroscopic imaging, confirming the intramedullary position and the level of the K-wire, a measurement was taken and a 360 mm nail was opened and passed over the guidewire until it was in a good position at the proximal femur. The triple-sleeve guide was assembled for the helical blade placement. Under biplanar fluoroscopic imaging, K-wire was advanced after the distal incision was made. K-wire was advanced through the femoral neck, center-center on the head in good position, confirmed with good tip-to-apex distance maintained. Measurements were taken. Then 90 mm length helical blade was predrilled and advanced and secured into position. Compression was then made across the fracture and the helical blade was locked into position and unlocked a half-turn to allow for dynamic compression during weightbearing and ambulation. Attention was then turned towards perfect circles and placement of distal interlocking screws. A distal incision was made at the level of the 2 distal interlocking holes of the nail. Perfect afognak technique was employed and 2 distal interlocking screws were placed bicortically with good fixation achieved. Final images were taken confirming maintenance of an anatomic reduction of the hip fracture and placement of hardware in good position with good screw length and helical blade length. Once final imaging was taken, the guide was disassembled and all surgical wounds were copiously irrigated. All wounds were reapproximated with #1 Vicryl suture for deep tissue and fascia, followed by 2-0 Vicryl suture for subcutaneous tissue, followed by mason for skin. Sterile dressings were applied and the patient was carefully transferred back to her stretcher where she was extubated and transferred to PACU in stable condition and tolerated the procedure well. DISPOSITION: The patient will be weightbearing as tolerated to the right lower extremity. She will work with physical therapy on ambulation, transfers and be out of bed as much is possible. We will monitor her progress. She will be started on DVT prophylaxis in the form of 40 mg once daily, starting postoperative day #1. She will be admitted to ICU postoperatively for close observation due to the known atrial myxoma. Once she is medically stable for discharge, she most likely will be discharged to a rehab facility and will follow up in my office as an outpatient within 1 week after discharge. Blaze Cartwright MD
[2017-09-01] MEDS: Levothyroxine 100 MCG TAB PO SCH (05:40)
--- NOTE | 2017-09-01 21:26 | PN ---
DATE: SUBJECTIVE: The patient denies any chest pain. She has poor appetite. PHYSICAL EXAMINATION: VITAL SIGNS: Blood pressure , heart rate 72, temperature 97.8, respirations 20. HEENT: Pale conjunctivae. CHEST: Clear. HEART: S1 and S2, regular. EXTREMITIES: No edema. LABORATORY DATA: Today's blood sugar is 104. ASSESSMENT: 1. Status post closed reduction and internal fixation with a long nail for right intertrochanteric fracture. 2. 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 3. Anemia and hyponatremia. RECOMMENDATIONS: Continue current IV clindamycin 900 mg q. 8 hours, Crestor 10 mg once a day. Lasix will be discontinued. Continue subcutaneous Lovenox at 40 mg once a day, atenolol at 25 mg once a day. I will start the patient on Ensure with chocolate flavor as per her choice. Donal Mcintosh MD
--- NOTE | 2017-09-01 22:31 | CP.PCM.PN ---
Subjective - Date & Time of Evaluation Date of Evaluation: 09/01/17 Time of Evaluation: 19:00 - Subjective Subjective: Pt seen and evaluated Objective - Vital Signs/Intake and Output Vital Signs (last 24 hours): Temp Pulse Resp BP Pulse Ox 97.8 F 72 20 90/60 L 98 09/01/17 15:00 09/01/17 15:00 09/01/17 15:00 09/01/17 15:00 09/01/17 15:00 Intake and Output: 09/01/17 09/02/17 18:59 06:59 Intake Total 240 Output Total 200 Balance 40 - Medications Medications: Current Medications Acetaminophen (Tylenol 325mg Tab) 650 mg PO ONCE PRN PRN Reason: pre transfusion Last Admin: 08/30/17 13:50 Dose: 650 mg Docusate Sodium (Colace) 100 mg PO BID [facility] Last Admin: 09/01/17 17:37 Dose: 100 mg Enoxaparin Sodium (Lovenox) 40 mg SC DAILY [facility] Last Admin: 08/30/17 12:55 Dose: Not Given Lactated Ringer's (Lactated Ringer's) 1,000 mls @ 100 mls/hr IV .Q10H [facility] Last Admin: 08/30/17 08:34 Dose: 100 mls/hr Clindamycin Phosphate 900 mg/ (Sodium Chloride) 56 mls @ 100 mls/hr IVPB Q8 [facility] Last Admin: 09/01/17 21:47 Dose: 100 mls/hr Levothyroxine Sodium (Synthroid) 100 mcg PO DAILY@0630 [facility] Last Admin: 09/01/17 05:40 Dose: 100 mcg Morphine Sulfate (Morphine) 2 mg IVP Q4 PRN PRN Reason: pain Rosuvastatin Calcium (Crestor) 10 mg PO HS [facility] Last Admin: 09/01/17 21:48 Dose: 10 mg Zolpidem Tartrate (Ambien) 5 mg PO HS [facility] Last Admin: 09/01/17 21:47 Dose: 5 mg - Labs Labs: 08/31/17 06:39 08/31/17 06:39 PT 10.9 SECONDS (9.7-12.2) 08/24/17 18:15 INR 1.0 08/24/17 18:15 APTT 25 SECONDS (21-34) 08/24/17 18:15 Assessment and Plan (1) HTN (hypertension) Status: Acute (2) Hip fracture, right Status: Acute (3) Anemia due to blood loss Status: Acute
[2017-09-02] MEDS: Levothyroxine 100 MCG TAB PO SCH (05:33)
[2017-09-02 07:33] LABS: HEMOGLOBIN 9.8 g/dL (11.0-16.0); MEAN CELL VOLUME 93.7 fL (81.0-99.0); MEAN CORPUSCULAR HGB CONC 34.2 g/dL (33.0-37.0); MEAN PLATELET VOLUME 8.6 fL (7.2-11.7); RBC 3.05 Mil/uL (3.80-5.20); RED CELL DISTRIBUTION WIDTH 13.4 % (11.5-14.5); WHITE BLOOD COUNT 10.6 K/uL (4.8-10.8)
[2017-09-02 08:00] LABS: BLOOD UREA NITROGEN 21 mg/dL (7-17); CALCIUM 7.6 mg/dl (8.6-10.4); GFR AFRICAN-AMERICAN > 60; GFR NON-AFRICAN AMERICAN > 60
[2017-09-02 08:45] VITALS: RESP 18
[2017-09-02] MEDS: Morphine 4 MG/ML VIAL IVP PRN ×2 (10:03→16:22)
--- NOTE | 2017-09-02 13:00 | CP.PCM.PN ---
Subjective - Date & Time of Evaluation Date of Evaluation: 09/02/17 Time of Evaluation: 12:58 - Subjective Subjective: PT CLEARED FOR D/C TO [facility] PER ORTHO. DISCUSSED WITH ORTHO JOHNATHON BABIN. OK TO CONTINUE CLINDAMYCIN PO WHILE AT [facility]. ALSO OK TO D/C TO [facility] TODAY PER TARA LIN. CM AND SW AWARE OF D/C AND SW WILL ARRANGE TRANSPORTATION. SON AT BEDSIDE AND AWARE OF D/C. NO FURTHER ORDERS. Objective - Vital Signs/Intake and Output Vital Signs (last 24 hours): Temp Pulse Resp BP Pulse Ox 97.8 F 70 18 100/56 L 98 09/02/17 08:46 09/02/17 08:46 09/02/17 08:46 09/02/17 08:46 09/02/17 08:46 Intake and Output: 09/02/17 09/02/17 06:59 18:59 Intake Total 290 Output Total 100 Balance 190 - Medications Medications: Current Medications Acetaminophen (Tylenol 325mg Tab) 650 mg PO ONCE PRN PRN Reason: pre transfusion Last Admin: 08/30/17 13:50 Dose: 650 mg Docusate Sodium (Colace) 100 mg PO BID [facility] Last Admin: 09/02/17 10:03 Dose: 100 mg Enoxaparin Sodium (Lovenox) 40 mg SC DAILY [facility] Last Admin: 08/30/17 12:55 Dose: Not Given Lactated Ringer's (Lactated Ringer's) 1,000 mls @ 100 mls/hr IV .Q10H [facility] Last Admin: 08/30/17 08:34 Dose: 100 mls/hr Clindamycin Phosphate 900 mg/ (Sodium Chloride) 56 mls @ 100 mls/hr IVPB Q8 [facility] Last Admin: 09/02/17 05:32 Dose: 100 mls/hr Levothyroxine Sodium (Synthroid) 100 mcg PO DAILY@0630 [facility] Last Admin: 09/02/17 05:33 Dose: 100 mcg Morphine Sulfate (Morphine) 2 mg IVP Q4 PRN PRN Reason: pain Last Admin: 09/02/17 10:03 Dose: 2 mg Rosuvastatin Calcium (Crestor) 10 mg PO [facility] Last Admin: 09/01/17 21:48 Dose: 10 mg Zolpidem Tartrate (Ambien) 5 mg PO [facility] Last Admin: 09/01/17 21:47 Dose: 5 mg - Labs Labs: 09/02/17 06:58 09/02/17 06:58 PT 10.9 SECONDS (9.7-12.2) 08/24/17 18:15 INR 1.0 08/24/17 18:15 APTT 25 SECONDS (21-34) 08/24/17 18:15
--- NOTE | 2017-09-02 14:22 | CP.PCM.PN ---
Subjective - Date & Time of Evaluation Date of Evaluation: 09/02/17 Time of Evaluation: 14:19 - Subjective Subjective: Patient states she is still having a lot of right hip/thigh pain. Denies numbness/tingling, no new complaints. Objective - Vital Signs/Intake and Output Vital Signs (last 24 hours): Temp Pulse Resp BP Pulse Ox 97.8 F 70 18 100/56 L 98 09/02/17 08:46 09/02/17 08:46 09/02/17 08:46 09/02/17 08:46 09/02/17 08:46 Intake and Output: 09/02/17 09/02/17 06:59 18:59 Intake Total 290 350 Output Total 100 400 Balance 190 -50 - Medications Medications: Current Medications Acetaminophen (Tylenol 325mg Tab) 650 mg PO ONCE PRN PRN Reason: pre transfusion Last Admin: 08/30/17 13:50 Dose: 650 mg Docusate Sodium (Colace) 100 mg PO BID [facility] Last Admin: 09/02/17 10:03 Dose: 100 mg Enoxaparin Sodium (Lovenox) 40 mg SC DAILY [facility] Last Admin: 08/30/17 12:55 Dose: Not Given Lactated Ringer's (Lactated Ringer's) 1,000 mls @ 100 mls/hr IV .Q10H [facility] Last Admin: 08/30/17 08:34 Dose: 100 mls/hr Clindamycin Phosphate 900 mg/ (Sodium Chloride) 56 mls @ 100 mls/hr IVPB Q8 [facility] Last Admin: 09/02/17 14:09 Dose: 100 mls/hr Levothyroxine Sodium (Synthroid) 100 mcg PO DAILY@0630 [facility] Last Admin: 09/02/17 05:33 Dose: 100 mcg Morphine Sulfate (Morphine) 2 mg IVP Q4 PRN PRN Reason: pain Last Admin: 09/02/17 10:03 Dose: 2 mg Rosuvastatin Calcium (Crestor) 10 mg PO [facility] Last Admin: 09/01/17 21:48 Dose: 10 mg Zolpidem Tartrate (Ambien) 5 mg PO HS [facility] Last Admin: 09/01/17 21:47 Dose: 5 mg - Labs Labs: 09/02/17 06:58 09/02/17 06:58 PT 10.9 SECONDS (9.7-12.2) 08/24/17 18:15 INR 1.0 08/24/17 18:15 APTT 25 SECONDS (21-34) 08/24/17 18:15 - Extremities Exam Additional comments: right hip: proximal incision site dressing saturated serous fluid. All incision sites intact, distal 2 sites dry. Minimal incisional erythema. +ROM ankle/toes, sensation intact, thigh soft, nonoted increase in swelling of thigh since last exam. calves soft NT neg homans. +DP/PT pulses Assessment and Plan (1) Displaced intertrochanteric fracture of right femur Assessment & Plan: POD#5 s/p right femur CR/IM nail h/h stable 2 days after transfusion dressing change daily until incision dry pt on clindamycin, can be switched to PO upon d/c PT/OT VTE proph orthopedically stable for transfer to [facility] f/u Dr. Zarate 7-10 days call for appointment d/w Dr. Zarate, agrees with above Status: Acute (2) Acute blood loss anemia Assessment & Plan: s/p 2 u PRBC stable Status: Acute
--- NOTE | 2017-09-02 15:06 | PN ---
DATE: SUBJECTIVE: The patient denies chest pain. PHYSICAL EXAMINATION: VITAL SIGNS: Blood pressure 100/56, heart rate 70, temperature 97.8, respirations 18. HEENT: Normocephalic. CHEST: Clear. HEART: S1 and S2 regular. LABORATORY DATA: Today's hemoglobin and hematocrit are 9.8 and 28.6, white count and platelet count are within normal limits. SMA-7: Sodium 131, potassium 3.9, chloride 101, CO2 of 29, glucose 96, BUN 21, creatinine 0.8. ASSESSMENT: 1. Status post closed reduction and internal fixation for right intertrochanteric fracture. 2. 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 3. Anemia and hyponatremia. RECOMMENDATIONS: Continue current Crestor 10 mg once a day, Lovenox 40 mg subcutaneously once a day, Synthroid 100 mcg once a day. Case was discussed with the son. After the patient's reasonable recovery, the echocardiographic study finding will be and DIPAK will be scheduled as an outpatient. Son was made aware of this followup. Donal Mcintosh MD
[2017-09-02 16:58] VITALS: BP 104/63; PULSE 87; TEMP 97.9; O2SAT 96
--- NOTE | 2017-09-02 22:48 | CP.PCM.DIS ---
Provider - Provider Date of Admission: 08/24/17 19:30 Attending physician: Cheo Flaherty MD Time Spent in preparation of Discharge (in minutes): 45 Diagnosis - Discharge Diagnosis (1) HTN (hypertension) Status: Acute (2) Hip fracture, right Status: Acute (3) Anemia due to blood loss Status: Acute Hospital Course - Lab Results Lab Results: Micro Results 08/31/17 17:04 Naris MRSA Culture - Final MRSA NOT DETECTED 08/28/17 18:01 Naris MRSA Culture (Admit) - Final MRSA NOT DETECTED 08/26/17 20:10 Urine,[place] Urine Culture - Final No Growth (<1,000 CFU/ML) Most Recent Lab Values WBC 10.6 K/uL (4.8-10.8) 09/02/17 06:58 RBC 3.05 Mil/uL (3.80-5.20) L 09/02/17 06:58 Hgb 9.8 g/dL (11.0-16.0) L 09/02/17 06:58 Hct 28.6 % (34.0-47.0) L 09/02/17 06:58 MCV 93.7 fL (81.0-99.0) 09/02/17 06:58 MCH 32.0 pg (27.0-31.0) H 09/02/17 06:58 MCHC 34.2 g/dL (33.0-37.0) 09/02/17 06:58 RDW 13.4 % (11.5-14.5) 09/02/17 06:58 Plt Count 289 K/uL (130-400) 09/02/17 06:58 MPV 8.6 fL (7.2-11.7) 09/02/17 06:58 Neut % (Auto) 70.8 % (50.0-75.0) 08/31/17 06:39 Lymph % (Auto) 20.0 % (20.0-40.0) 08/31/17 06:39 [place] % (Auto) 5.2 % (0.0-10.0) 08/31/17 06:39 Eos % (Auto) 3.1 % (0.0-4.0) 08/31/17 06:39 Baso % (Auto) 0.9 % (0.0-2.0) 08/31/17 06:39 Neut # 8.2 K/uL (1.8-7.0) H 08/31/17 06:39 Lymph # 2.3 K/uL (1.0-4.3) 08/31/17 06:39 [place] # 0.6 K/uL (0.0-0.8) 08/31/17 06:39 Eos # 0.4 K/uL (0.0-0.7) 08/31/17 06:39 Baso # 0.1 K/uL (0.0-0.2) 08/31/17 06:39 PT 10.9 SECONDS (9.7-12.2) 08/24/17 18:15 INR 1.0 08/24/17 18:15 APTT 25 SECONDS (21-34) 08/24/17 18:15 Sodium 131 mmol/L (132-148) L 09/02/17 06:58 Potassium 3.9 mmol/L (3.6-5.2) 09/02/17 06:58 Chloride 101 mmol/L (98-107) 09/02/17 06:58 Carbon Dioxide 29 mmol/L (22-30) 09/02/17 06:58 Anion Gap 5 (10-20) L 09/02/17 06:58 BUN 21 mg/dL (7-17) H 09/02/17 06:58 Creatinine 0.8 mg/dL (0.7-1.2) 09/02/17 06:58 Est GFR ( Amer) > 60 09/02/17 06:58 Est GFR (Non-Af Amer) > 60 09/02/17 06:58 POC Glucose (mg/dL) 132 mg/dL (65-110) H 09/01/17 20:54 Random Glucose 96 mg/dL (65-105) 09/02/17 06:58 Calcium 7.6 mg/dl (8.6-10.4) L 09/02/17 06:58 Phosphorus 2.2 mg/dL (2.5-4.5) L 08/31/17 06:39 Magnesium 1.7 mg/dL (1.6-2.3) 08/31/17 06:39 Total Bilirubin 1.4 mg/dL (0.2-1.3) H 08/31/17 06:39 AST 23 U/L (14-36) 08/31/17 06:39 ALT 25 U/L (9-52) 08/31/17 06:39 Alkaline Phosphatase 48 U/L (38-126) 08/31/17 06:39 Total Protein 4.9 g/dL (6.3-8.3) L 08/31/17 06:39 Albumin 2.4 g/dL (3.5-5.0) L 08/31/17 06:39 Globulin 2.5 gm/dL (2.2-3.9) 08/31/17 06:39 Albumin/Globulin Ratio 1.0 (1.0-2.1) 08/31/17 06:39 Urine Color Yellow (YELLOW) 08/26/17 18:08 Urine Clarity Hazy (Clear) 08/26/17 18:08 Urine pH 5.0 (5.0-8.0) 08/26/17 18:08 Ur Specific [place] 1.018 (1.003-1.030) 08/26/17 18:08 Urine Protein 1+ mg/dL (NEGATIVE) H 08/26/17 18:08 Urine Glucose (UA) 2+ mg/dL (Normal) H 08/26/17 18:08 Urine Ketones Negative mg/dL (NEGATIVE) 08/26/17 18:08 Urine Blood 3+ (NEGATIVE) H 08/26/17 18:08 Urine Nitrate Negative (NEGATIVE) 08/26/17 18:08 Urine Bilirubin Negative (NEGATIVE) 08/26/17 18:08 Urine Urobilinogen Normal mg/dL (0.2-1.0) 08/26/17 18:08 Ur Leukocyte Esterase 3+ [place]/uL (Negative) H 08/26/17 18:08 Urine WBC (Auto) 32 /hpf (0-5) H 08/26/17 18:08 Urine RBC (Auto) 69 /hpf (0-3) H 08/26/17 18:08 Ur Squamous Epith Cells 2 /hpf (0-5) 08/26/17 18:08 Ur Transition Epith Cell 5 /hpf (0-3) H 08/26/17 18:08 Calcium Oxalate Crystal Few /hpf (<OCC) H 08/26/17 18:08 Urine Bacteria Few (<OCC) H 08/26/17 18:08 Vancomycin Trough 19.0 ug/mL (5.0-10.0) H 08/30/17 11:02 Blood Type O POSITIVE 08/30/17 11:26 Antibody Screen Positive 08/30/17 11:26 Antibody Identification Anti K Non Specific Antibody 08/24/17 18:15 Antibody Identification Anti K Non Specific Antibody WARM AUTO ANTIBODY 08/24 18:15 Antibody Identification Anti K Non Specific Antibody WARM AUTO ANTIBODY 08/24 18:15 Antibody Identification Anti K Non Specific Antibody WARM AUTO ANTIBODY 08/24 18:15 Antigen Identification K Antigen - NEGATIVE 08/24/17 18:15 BRANDIN, Poly Interpret Positive (NEGATIVE) H 08/24/17 18:15 - Hospital Course Hospital Course: Pt seen and examined, is discharged today , no chest pain, no complains is feeling better POD#5 s/p right femur CR/IM nail h/h stable 2 days after transfusion dressing change daily until incision dry pt on clindamycin, can be switched to PO upon d/c PT/OT VTE proph orthopedically stable for transfer to [facility] s/p 2 u PRBC stable Discharge Exam - Head Exam Head Exam: ATRAUMATIC, NORMAL INSPECTION, NORMOCEPHALIC - Eye Exam Eye Exam: EOMI - ENT Exam ENT Exam: Mucous Membranes Moist - Respiratory Exam Respiratory Exam: Clear to PA & Lateral - Cardiovascular Exam Cardiovascular Exam: REGULAR RHYTHM, +S1, +S2 - GI/Abdominal Exam GI & Abdominal Exam: Normal Bowel Sounds - Rectal Exam Rectal Exam: Deferred Discharge Plan - Discharge Medications Prescriptions: Clindamycin [Cleocin] 600 mg PO Q8 #21 cap - Follow Up Plan Condition: STABLE Disposition: REHAB FACILITY/REHAB UNIT Instructions: Clindamycin (By mouth), Transesophageal Echocardiogram (DC), Pain Management After Surgery (DC), Hip Fracture (GEN), Intramedullary Nailing ( DC) Additional Instructions: -PLACE UNDER THE SERVICE OF DR. FLAHERTY WH[place] [facility] [place]CALL UPON ARRIVAL TO FACILITY WITH BED ASSIGNMENT AND FOR ADMITTING ORDERS. -CONTINUE MEDICATIONS PER THE MED REC FORM---CHANGES CAN BE MADE BY DR. FLAHERTY. -CONTINUE CLINDAMYCIN (CLEOCIN) 600 MG PO Q8 HOURS X7 DAYS (START 09/03/17 AND LAST DOSE TO BE GIVEN ON 09/09/17). -PHYSICAL THERAPY TOLERATED. -CHANGE DRESSING TO RIGHT HIP DAILY. -FOLLOW UP WITH DR. BLAS (ORTHO) IN THE OFFICE IN 7-10 DAYS---CALL FOR APPOINTMENT TIME. ARRANGE TRANSPORTATION TO AND FROM OFFICE. -FOR FURTHER ORDERS OR QUESTIONS, CONTACT DR. FLAHERTY'S OFFICE. Referrals: Blaze Blas MD [Staff Provider] - Donal Mcintosh MD [Staff Provider] - Cheo Flaherty MD [Staff Provider] -
--- NOTE | 2017-09-03 11:09 | VASCLAB ---
PROCEDURE: Lower Extremity Venous Duplex Exam. HISTORY: Leg swelling PRIORS: None. TECHNIQUE: Bilateral common femoral, femoral, popliteal and posterior tibial, peroneal and great saphenous veins were evaluated. Flow was assessed with color Doppler, compressibility, assessment of phasic flow and augmentation response. Report prepared by RUSSELL Johnson, RVT FINDINGS: RIGHT: 1. Common Femoral Vein: 1.1. Compressibility - Fully compressible: Thrombus - None : Flow - Phasic: Augmentation -Normal: Reflux - None. 2. Femoral Vein: 2.1. Compressibility - Fully compressible: Thrombus - None : Flow - Phasic: Augmentation -Normal: Reflux - None. 3. Popliteal Vein: 3.1. Compressibility - Fully compressible: Thrombus - None : Flow - Phasic: Augmentation -Normal: Reflux - None. 4. Posterior Tibial Vein: 4.1. Compressibility - Fully compressible: Thrombus - None: Flow - Phasic: Augmentation -Normal: Reflux - None. 5. Peroneal Vein: 5.1. Compressibility - Fully compressible: Thrombus - None: Flow - Phasic: Augmentation -Normal: Reflux - None. 6. Great Saphenous Vein: 6.1. Compressibility - Incompressible: Thrombus - Chronic: Flow - Reduced : Augmentation - Reduced: Reflux - None. LEFT: 1. Common Femoral Vein: 1.1. Compressibility - Fully compressible: Thrombus - None: Flow - Phasic: Augmentation -Normal: Reflux - None. 2. Femoral Vein: 2.1. Compressibility - Fully compressible: Thrombus - None: Flow - Phasic: Augmentation -Normal: Reflux - None. 3. Popliteal Vein: 3.1. Compressibility - Fully compressible: Thrombus - None : Flow - Phasic: Augmentation -Normal: Reflux - None. 4. Posterior Tibial Vein: 4.1. Compressibility - Fully compressible: Thrombus - None: Flow - Phasic: Augmentation -Normal: Reflux - None. 5. Peroneal Vein: 5.1. Compressibility - Fully compressible: Thrombus - None: Flow - Phasic: Augmentation -Normal: Reflux - None. 6. Great Saphenous Vein: 6.1. Compressibility - Fully compressible: Thrombus - None: Flow - Phasic: Augmentation - Normal: Reflux - None. OTHER FINDINGS: Technically limited compressions due to severe swelling and patient intolerance to pain. 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 No evidence of deep vein thrombosis of the right lower extremity. Normal valve function noted of the right side. Left: No evidence of deep or superficial vein thrombosis of the left lower extremity. Normal valve function noted of the left side.
== END 2017-09-02 17:37 | DRG 481 ==
LOC: C.ER 17:05 → C.9E 19:30 → C.6T 23:32 → C.9I 08-28 15:40 → C.6T 08-31 17:32
PROVIDERS: ADMIT Internal Medicine; ATTEND Internal Medicine
PROC: 0QS634Z Reposition Right Upper Femur with Internal Fixation Device, Percutaneous Approach (ICD-10-PCS; principal; 2017-08-28 10:15)
DX: S72.141A Displaced intertrochanteric fracture of right femur, initial encounter for closed fracture (principal); D62 Acute posthemorrhagic anemia; E11.9 Type 2 diabetes mellitus without complications; E87.1 Hypo-osmolality and hyponatremia; E87.6 Hypokalemia; I10 Essential (primary) hypertension; W01.0XXA Fall on same level from slipping, tripping and stumbling without subsequent striking against object, initial encounter; Y92.009 Unspecified place in unspecified non-institutional (private) residence as the place of occurrence of the external cause; E03.9 Hypothyroidism, unspecified